=== PATIENT | male | born 1940 | race Caucasian/White ===

== ENCOUNTER 2020-05-03 09:10 | Outpatient (RCR) | payer MEDICARE, SELFPAY ==
[2020-04-29] MEDS: COVID-19 VACC, MRNA(PFIZER)/PF 30 MCG/0.3 ML SYRINGE IM (13:28)
[2020-05-20] MEDS: COVID-19 VACC, MRNA(PFIZER)/PF 30 MCG/0.3 ML SYRINGE IM (13:41)
== END 2020-07-29 23:59 ==
LOC: IMMUN 09:10
PROVIDERS: Referring Provider Family Medicine; Visit Provider Family Medicine
DX: Z23 Encounter for immunization (principal)
CPT/HCPCS: 0001A; 0002A; 91300

== ENCOUNTER → 2021-03-11 04:00 | Outpatient (REF) | payer MEDICARE, SELFPAY ==
[2021-03-11 09:39] LABS: Absolute Lymphocyte Count 2.24 X10^3/uL (0.83-4.51); Absolute Neutrophil Count 6.6 X10^3/uL (2.0-7.7); Basophil# 0.05 X10^3/uL; Basophil% 0.5 % (0-1); Eosinophil# 0.35 X10^3/uL; Eosinophils% 3.4 % (0-5); Hemoglobin 13.2 g/dL (13.0-16.5); Lymphocyte # 2.24 X10^3/ul (0.83-4.51); Mean Corp Hgb Conc 33.8 g/dL (32-36); Mean Corpuscular Hgb 31.7 pg (27.0-32.0); Mean Corpuscular Volume 93.8 fL (80-94); Mean Platelet Vol. 10.6 fl (6.2-12.0); Monocyte# 0.93 X10^3/uL; Monocyte% 9.2 % (0-10); NRBC Flagged by Analyzer 0 % (0-5); Neutrophil # 6.56 X10^3/uL (2.7-7.7); Neutrophil % 64.6 % (47-70); Platelet Count 254 K/mm3 (150-450); RBC Distribution Width CV 12.9 % (11.6-14.6); RBC Distribution Width SD 42.6 fl (35.1-43.9); Red Blood Count 4.16 M/mm3 (4.6-6.2); White Blood Count 10.2 K/mm3 (4.4-11.0)
[2021-03-11 09:54] LABS: Anion Gap 8 (5-15); BUN 25 mg/dL (7-18); BUN/Creat Ratio 15.9 RATIO (10-20); Calcium,Total 9.4 mg/dL (8.5-10.1); Chloride 108 mmol/L (98-107); Creatinine, Serum 1.57 mg/dL (0.70-1.30); EST Glomerular Filtration Rate 46 mL/min (>60); Est Glom Filt Rate - Afr Amer 55 mL/min (>60); Glucose 146 mg/dL (74-106); Potassium 3.7 mmol/L (3.5-5.1); Sodium Level 141 mmol/L (136-145)
== END ==
LOC: OLS.SW400 04:00
PROVIDERS: Referring Provider Internal Medicine; Visit Provider Internal Medicine
DX: I12.9 Hypertensive chronic kidney disease with stage 1 through stage 4 chronic kidney disease, or unspecified chronic kidney disease (principal); F03.90 Unspecified dementia, unspecified severity, without behavioral disturbance, psychotic disturbance, mood disturbance, and anxiety; E78.5 Hyperlipidemia, unspecified; N18.9 Chronic kidney disease, unspecified
CPT/HCPCS: 36415; 80048; 85025

== ENCOUNTER 2021-04-02 20:20 | Inpatient (IN) | payer MEDICARE, SELFPAY ==
[2021-04-02] VITALS (9 sets, daily range): BP systolic 158–188; BP diastolic 73–92; PULSE 66–72; RESP 11–16; TEMP 36.7–37.2; O2SAT 97–100; BMI 26.6; BMI 23.2
--- NOTE | 2021-04-02 20:22 | CT_ITS ---
We are attempting to reach an attending provider to discuss findings. An addendum with communication details will be sent when the communication is complete. EXAM: CT ANGIOGRAPHY HEAD AND NECK WITH INTRAVENOUS CONTRAST CLINICAL INDICATION: Neuro deficit, acute, stroke suspected TIA, found on floor, slurred speech, not using right arm. TECHNIQUE: [facility] [place]/head and neck CT angiography protocol performed with intravenous contrast. This CT exam was performed using one or more of the following dose reduction techniques: automated exposure control, adjustment of the mA and/or kV according to patient size, and/or use of iterative reconstruction technique. This report was created using [employer] report Gobble technology. MIP reconstructed images were created and reviewed. CONTRAST: IV 100mL [id number] COMPARISON: None. FINDINGS: HEAD: RIGHT ANTERIOR CEREBRAL ARTERY: Unremarkable. No significant stenosis at the visualized segments. Anterior communicating artery is present. No aneurysm. RIGHT MIDDLE CEREBRAL ARTERY: Unremarkable. No significant stenosis at the visualized segments. No aneurysm. RIGHT POSTERIOR CEREBRAL ARTERY: Unremarkable. No occlusion or significant stenosis. No aneurysm. LEFT ANTERIOR CEREBRAL ARTERY: Unremarkable. No significant stenosis at the visualized segments. No aneurysm. LEFT MIDDLE CEREBRAL ARTERY: Unremarkable. No significant stenosis at the visualized segments. No aneurysm. LEFT POSTERIOR CEREBRAL ARTERY: Unremarkable. No occlusion or significant stenosis. No aneurysm. BASILAR ARTERY: Unremarkable. No significant stenosis. No aneurysm. GREAT VESSELS OF AORTIC ARCH: Unremarkable. Normal anatomy, patent. OTHER VASCULATURE: No vascular malformation. NECK: RIGHT COMMON CAROTID ARTERY: Unremarkable. No significant stenosis. No dissection or occlusion. RIGHT INTERNAL CAROTID ARTERY: There is calcified plaque formation of the right cavernous carotid artery, with a mild stenosis (less than 50%). There is calcified plaque formation of the left cavernous carotid artery, with a mild stenosis (less than 50%). ALL ABOVE CRITERIA BY NASCET. No dissection or occlusion. RIGHT EXTERNAL CAROTID ARTERY: Unremarkable. No occlusion. RIGHT VERTEBRAL ARTERY: Unremarkable. No significant stenosis. No dissection or occlusion. LEFT COMMON CAROTID ARTERY: Unremarkable. No significant stenosis. No dissection or occlusion. LEFT INTERNAL CAROTID ARTERY: There is mild atherosclerotic plaque formation of the origin of the right and left internal carotid artery with less than 50% cross sectional diameter stenosis. ALL ABOVE CRITERIA BY NASCET. LEFT EXTERNAL CAROTID ARTERY: Unremarkable. No occlusion. LEFT VERTEBRAL ARTERY: Unremarkable. No significant stenosis. No dissection or occlusion. THYROID: Heterogeneous right lobe of the thyroid gland. Recommend ultrasound to further evaluate. LUNG APICES: Unremarkable as visualized. SOFT TISSUES: Unremarkable. OTHER FINDINGS: There are degenerative findings of the cervical spine. CAROTID STENOSIS REFERENCE USING NASCET CRITERIA: % ICA stenosis = (1 - narrowest ICA diameter/diameter of distal cervical ICA) x 100. Mild - <50% stenosis. Moderate - 50-69% stenosis. Severe - 70-94% stenosis. Near occlusion - 95-99% stenosis. Occluded - 100% stenosis. CT/STROKE CTA Head AND Neck W/Con IMPRESSION: 1. Heterogeneous right lobe of the thyroid gland. Recommend ultrasound to further evaluate. 2. There is mild atherosclerotic plaque formation of the origin of the right and left internal carotid artery with less than 50% cross sectional diameter stenosis. ALL ABOVE CRITERIA BY NASCET. 3. There is calcified plaque formation of the right cavernous carotid artery, with a mild stenosis (less than 50%). There is calcified plaque formation of the left cavernous carotid artery, with a mild stenosis (less than 50%). ALL ABOVE CRITERIA BY NASCET. Electronically Signed: Surinder Bender MD at 20:44 EST ,
--- NOTE | 2021-04-02 20:22 | EKG12_ITS ---
Test Reason : DYSRHYTHMIA Blood Pressure : / mmHG Vent. Rate : 067 BPM Atrial Rate : 067 BPM P-R Int : 176 ms QRS Dur : 090 ms QT Int : 416 ms P-R-T Axes : 045 -38 083 degrees QTc Int : 439 ms Sinus rhythm with Premature atrial complexes Left axis deviation Nonspecific T wave abnormality Poor R wave progression Abnormal ECG Confirmed by DARRIN AUSTIN, THOMPSON ([id number]), primer expeditor and drier ROMELIA AYOUB ([id number]) on 04/03/2021 11:09:04 AM Referred By: MARIAH Confirmed By:THOMPSON CLIFFORD MD
--- NOTE | 2021-04-02 20:22 | CT_ITS ---
We are attempting to reach an attending provider to discuss findings. An addendum with communication details will be sent when the communication is complete. EXAM: CT HEAD WITHOUT INTRAVENOUS CONTRAST CLINICAL INDICATION: Neuro deficit, acute, stroke suspected TECHNIQUE: Multiple axial images were obtained of the head without intravenous contrast. This CT exam was performed using one or more of the following dose reduction techniques: automated exposure control, adjustment of the mA and/or kV according to patient size, and/or use of iterative reconstruction technique. This report was created using [employer] report generation technology. 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 Old infarct of the left temporal lobe, frontal lobes, parietal lobes and occipital lobes. Microvascular ischemic changes. No intra- or extra-axial hemorrhage. No intracranial mass or mass effect. Ventricles are appropriate for age. No hydrocephalus. Basal cisterns are patent. BONES/JOINTS: Unremarkable. No discrete lytic or blastic abnormalities. SINUSES: Unremarkable as visualized. Clear. MASTOID AIR CELLS: Unremarkable. Clear. ORBITS: Visualized globes, extraocular muscles, optic nerves and retrobulbar fat appear unremarkable. 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 Electronically Signed: Surinder Bender MD at 20:39 EST ,
--- NOTE | 2021-04-02 20:23 | ED.VIS.STROK ---
HPI History of Present Illness Chief Complaint: Neuro S/Sx Narrative Narrative: 80-year-old male presenting for altered mental status, slurred speech, right-sided facial droop. Last known well 7:30 PM today. Patient was found by nursing staff at his facility on the floor. At that point he was unable to speak. He was unable to get up and move. Patient's baseline is alert and oriented x1-2, but he is not have slurred speech she has history. When asked if he has a history of stroke he indicates yes with his hand. He is able to move all 4 extremities. [facility] Medical History (Updated 04/02/21 @ 21:[address] Reba Kim MD) Acute CVA (cerebrovascular accident) Anxiety and depression Benign essential HTN Cataract (lens) fragments in eye following cataract surgery, left eye Chronic kidney disease DM2 (diabetes mellitus, type 2) Former tobacco use GERD (gastroesophageal reflux disease) History of CVA (cerebrovascular accident) Hyperlipidemia Muscle weakness (generalized) Orthostatic hypotension Sleep apnea TIA (transient ischemic attack) Vascular dementia Home Medications apixaban [Eliquis] 5 mg PO BID 04/02/21 [History Last Taken Unknown] fludrocortisone 0.1 mg PO DAILY 04/02/21 [History Last Taken Unknown] hydralazine 10 mg PO DAILY 04/02/21 [History Last Taken Unknown] hydralazine 20 mg PO QHS 04/02/21 [History Last Taken Unknown] Allergy/AdvReac Type Severity Reaction Status Date / Time No Known Allergies Allergy Verified 04/02/21 20:59 Social History Smoking Status: Former smoker ROS ROS ED Review of Systems ROS Unobtainable: due to mental status EXAM Physical Exam Const Vital Signs: 04/02/21 20:22 04/02/21 20:39 04/02/21 20:59 Temperature 98.9 F Temperature Source Oral Pulse Rate 67 Respiratory Rate 12 Blood Pressure 164/73 H Blood Pressure Mean 103 Pulse Ox 97 Oxygen Delivery Method Room Air Room Air 04/02/21 21:21 04/02/21 21:22 04/02/21 21:30 Temperature Temperature Source Pulse Rate 69 69 72 Respiratory Rate 13 11 L 11 L Blood Pressure 158/85 H 158/85 H 158/85 H Blood Pressure Mean 109 109 109 Pulse Ox 97 97 97 Oxygen Delivery Method Room Air Room Air Room Air Positive well nourished General Appearance ED: NAD HEENT Reports dry mucous membranes atraumatic Mouth ED: Yes dry mucous membranes Mouth: dry mucous membranes Eyes PERRL and EOMs intact bilaterally Chest Wall inspection of chest normal and palpation of chest normal Resp normal respiratory effort and clear to auscultation bilaterally Cardio Rate: regular rate Rhythm: regular rhythm GI normal to inspection, nondistended, normoactive bowel sounds Neuro Neuro Narrative: NIH stroke scale score of 7 Sensorium / Orientation: alert STROKE Vital Signs/Narrative: Vital Signs Temp Pulse Resp BP Pulse Ox 04/02/21 21:30 72 11 L 158/85 H 97 04/02/21 21:22 69 11 L 158/85 H 97 04/02/21 21:21 69 13 158/85 H 97 04/02/21 20:59 67 12 164/73 H 97 04/02/21 20:22 98.9 F MDM MDM MDM Narrative Medical decision making narrative: Patient presenting with slurred and garbled speech, right-sided facial droop, reported history of right arm weakness which is not present on exam. NIH stroke scale score of 7. His did arrive and states that he is on Eliquis because he has a history of strokes. She states that even though he is a fall risk to keep him on this. He is a fall risk because he has orthostatic hypotension. Patient is not supposed to ambulate on his own but if he has to go to the restroom he will get up and try to walk. He was found on the ground tonight. Last known well 1930. No evidence of injury to his extremities. Lungs clear to auscultation. Heart is regular rate and rhythm. Abdomen nontender. CT of the brain interpreted by the radiologist shows a left cerebellar ischemic stroke and possibly a right cerebellar ischemic stroke. This was reviewed with [facility] and they do agree that these both look fairly new. He does have old strokes on his CAT scan. There is no intracranial hemorrhage. His CBC shows a slight leukocytosis compared to previous on 03/23/2021. This is 13.4 today. Hemoglobin hematocrit are stable. Platelets are normal. Creatinine is at baseline at 1.68. Electrolytes are normal. Urinalysis is positive for infection. Patient given a dose of Rocephin and a urine culture is sent. Coagulation studies are normal. EKG on my interpretation is a sinus rhythm with a ventricular rate of 67 bpm. Impression: 1. Acute stroke 2. UTI 3. Fall Lab Data Attestation: I reviewed the patient's lab results. Labs: Laboratory Results - last 24 hr 04/02/21 04/02/21 04/02/21 20:08 20:08 20:52 WBC 13.4 H RBC 4.30 L Hgb 13.6 Hct 39.0 L MCV 90.7 MCH 31.6 MCHC 34.9 RDW Std Deviation 40.9 RDW Coeff of Palak 12.4 Plt Count 252 MPV 9.7 Immature Gran % (Auto) 0.600 Neut % (Auto) 73.5 H Lymph % (Auto) 14.0 L [place] % (Auto) 9.3 Eos % (Auto) 2.2 Baso % (Auto) 0.4 Absolute Neuts (auto) 9.8 H Absolute Lymphs (auto) 1.87 Nucleated RBC % 0 PT INR APTT Sodium 141 Potassium 3.8 Chloride 109 H Carbon Dioxide 28.0 Anion Gap 4 L BUN 21 H Creatinine 1.68 H Estim Creat Clear Calc 36.81 Est GFR (MDRD) Af Amer 51 L Est GFR (MDRD) Non-Af 42 L BUN/Creatinine Ratio 12.5 Glucose 102 Calcium 9.1 Troponin I High Sens 58 Urine Color Yellow Urine Clarity Clear Urine pH 7.0 Ur Specific [place] 1.010 Urine Protein Negative Urine Glucose (UA) Normal Urine Ketones Negative Urine Occult Blood 25 H Urine Nitrite Positive H Urine Bilirubin Negative Urine Urobilinogen Normal Ur Leukocyte Esterase 25 H Urine RBC 0-5 SEEN Urine WBC 0-5 SEEN Ur Squamous Epith Cells 0 SEEN Urine Bacteria 1+ Urine Mucus 0 SEEN 04/02/21 20:53 WBC RBC Hgb Hct MCV MCH MCHC RDW Std Deviation RDW Coeff of [place] Plt Count MPV Immature Gran % (Auto) Neut % (Auto) Lymph % (Auto) [place] % (Auto) Eos % (Auto) Baso % (Auto) Absolute Neuts (auto) Absolute Lymphs (auto) Nucleated RBC % PT 16.4 H INR 1.4 APTT 51.1 H Sodium Potassium Chloride Carbon Dioxide Anion Gap BUN Creatinine Estim Creat Clear Calc Est GFR (MDRD) Af Amer Est GFR (MDRD) Non-Af BUN/Creatinine Ratio Glucose Calcium Troponin I High Sens Urine Color Urine Clarity Urine pH Ur Specific [place] Urine Protein Urine Glucose (UA) Urine Ketones Urine Occult Blood Urine Nitrite Urine Bilirubin Urine Urobilinogen Ur Leukocyte Esterase Urine RBC Urine WBC Ur Squamous Epith Cells Urine Bacteria Urine Mucus Radiography Diagnostic Testing: Clinical Impression(s) from Imaging Studies Brain CT 04/02/21 20:22 IMPRESSION: 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 Electronically Signed: Surinder Bender MD at 20:39 EST , ADDENDUM: 04/02/212047 IMPRESSION: 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 N.B. : The above Results were Read Back by Surinder Bender MD to MD niyah, and understanding confirmed on 04/02/2021 20:41:35 (ET). Electronically Signed: Surinder Bender MD at 20:39 EST , Head/Neck CTA 04/02/21 20:22 IMPRESSION: 1. Heterogeneous right lobe of the thyroid gland. Recommend ultrasound to further evaluate. 2. There is mild atherosclerotic plaque formation of the origin of the right and left internal carotid artery with less than 50% cross sectional diameter stenosis. ALL ABOVE CRITERIA BY NASCET. 3. There is calcified plaque formation of the right cavernous carotid artery, with a mild stenosis (less than 50%). There is calcified plaque formation of the left cavernous carotid artery, with a mild stenosis (less than 50%). ALL ABOVE CRITERIA BY NASCET. Electronically Signed: Surinder Bender MD at 20:44 EST , ADDENDUM: 04/02/212054 IMPRESSION: 1. Heterogeneous right lobe of the thyroid gland. Recommend ultrasound to further evaluate. 2. There is mild atherosclerotic plaque formation of the origin of the right and left internal carotid artery with less than 50% cross sectional diameter stenosis. ALL ABOVE CRITERIA BY NASCET. 3. There is calcified plaque formation of the right cavernous carotid artery, with a mild stenosis (less than 50%). There is calcified plaque formation of the left cavernous carotid artery, with a mild stenosis (less than 50%). ALL ABOVE CRITERIA BY NASCET. N.B. : The above Results were Read Back by Surinder Bender MD to Dr Niyah MD, and understanding confirmed on 04/02/2021 20:48:32 (ET). Electronically Signed: Surinder Bender MD at 20:44 EST , Discharge Plan Triage Chief Complaint: Neuro S/Sx ED Provider: José Manley Dx/Rx/DC Orders Primary Care Provider: Kalpana Oden
--- NOTE | 2021-04-02 20:28 | CM.ED ---
SW Note Referral Source: Stroke Alert Referral Reason: Stroke Alert Sw responded to stroke alert. Family not present. SW was advised that patient's was in the room with patient per staff. SW met with Tatyana. Patient has been at [facility] for 3 weeks. Patient has been at [facility] for 3 weeks related to being a fall risk. Tatyana said that patient continually voices that he wants to come home. Tatyana said that she and patient moved to [place] approximately 7 months ago to downsize. Patient has son who lives local and son in [place]. Patient has no siblings and patient's brother in law ('s brother) resides in [place]. Tatyana reports good family support. Tatyana said that she got call from [facility] and her son was at my house in 10 minutes to bring her to the ED. Tatyana voiced that there has been lots of changes this past year due to moving, downsizing and patient going to [facility]. SW provided emotional support to Tatyana. Tatyana said that if patient is admitted she will have son take her home tonight. Tatyana reports no other issues or needs at this time. Sw remains available if needed. Plan: Emotional support to family. Radha BOTELLO
--- NOTE | 2021-04-02 20:30 | ED.RN ---
Pt arrives with no MAR or med list from [facility]. called [facility] and requested they fax medlist priyanka.
--- NOTE | 2021-04-02 20:40 | ED.RN ---
[facility] called ED to clarify if we wanted MAR or medlist. was told both and again asked for them priyanka. nurse states patient is not on blood thinners.
[2021-04-02 20:53] LABS: Absolute Lymphocyte Count 1.87 X10^3/uL (0.83-4.51); Absolute Neutrophil Count 9.8 X10^3/uL (2.0-7.7); Basophil# 0.05 X10^3/uL; Basophil% 0.4 % (0-1); Eosinophils% 2.2 % (0-5); Hemoglobin 13.6 g/dL (13.0-16.5); Lymphocyte # 1.87 X10^3/ul (0.83-4.51); Mean Corp Hgb Conc 34.9 g/dL (32-36); Mean Corpuscular Hgb 31.6 pg (27.0-32.0); Mean Corpuscular Volume 90.7 fL (80-94); Mean Platelet Vol. 9.7 fl (6.2-12.0); Monocyte# 1.24 X10^3/uL; Monocyte% 9.3 % (0-10); NRBC Flagged by Analyzer 0 % (0-5); Neutrophil # 9.82 X10^3/uL (2.7-7.7); Neutrophil % 73.5 % (47-70); Platelet Count 252 K/mm3 (150-450); RBC Distribution Width CV 12.4 % (11.6-14.6); RBC Distribution Width SD 40.9 fl (35.1-43.9); White Blood Count 13.4 K/mm3 (4.4-11.0)
[2021-04-02 21:03] LABS: Anion Gap 4 (5-15); BUN 21 mg/dL (7-18); BUN/Creat Ratio 12.5 RATIO (10-20); Calcium,Total 9.1 mg/dL (8.5-10.1); Chloride 109 mmol/L (98-107); Creatinine, Serum 1.68 mg/dL (0.70-1.30); EST Glomerular Filtration Rate 42 mL/min (>60); Est Glom Filt Rate - Afr Amer 51 mL/min (>60); Estimated Creatinine Clearance 36.81 ml/min; Glucose 102 mg/dL (74-106); Potassium 3.8 mmol/L (3.5-5.1); Sodium Level 141 mmol/L (136-145); Troponin-I HS 58 pg/mL (3.0-78.0)
[2021-04-02 21:16] LABS: Color, Urine Yellow (Yellow); Glucose, Dipstick Normal (Normal); Ketone-Dipstick Negative (Negative); Leukocyte Esterase-Dipstick 25 /ul (Negative); Mucous, Urine 0 SEEN /hpf (<or=2+); Nitrite-Dipstick Positive (Negative); Occult Blood-Urine 25 /ul (Negative); Protein-Dipstick Negative (Negative); Squamous Epithelial Cells - UA 0 SEEN /hpf (0-5); Urine Bilirubin Dipstick Negative (Negative); Urine Clarity Clear (Clear); Urine Urobilinogen Normal (Normal)
[2021-04-02 21:21] LABS: International Normalized Ratio 1.4; Prothrombin Time (Protime)PT. 16.4 SECONDS (11.7-14.9)
[2021-04-02 21:22] LABS: Partial Thromboplast Time 51.1 Seconds (24.1-36.2)
[2021-04-02 21:26] LABS: Bacteria 1+ /hpf (None Seen); Red Blood Cells-Urine 0-5 SEEN /hpf (0-5); White Blood Cells 0-5 SEEN /hpf (0-5)
[2021-04-02] MEDS: Ceftriaxone 1 GM/50 ML BAG IV (21:36)
--- NOTE | 2021-04-02 21:45 | ED.RN ---
third request for medlist made to [facility]. They are faxing to the wrong fax number. They will try again.
--- NOTE | 2021-04-02 21:46 | PCM.HP.STD ---
HPI - General General Date of Admission: 04/02/21 Date of Service: 04/02/21 Chief Complaint: Aphasia, R facial droop. HPI Narrative The patient is a 80 y/o M w/ PMHx: CKD stage III unclear subtype, Vascular Dementia, HTN, Chronic anemia/Fe deficiency anemia, Adrenal insufficiency on fludrocortisone, GERD, Anxiety and Depression, Diabetes mellitus type II, Former tobacco use, Hx prior CVA on eliquis therapy who presents to the [facility] ED on 04/02/21 with history of onset altered mental status, slurred speech as well as right-sided facial droop with last known well at 7:30 PM on day of presentation found by nursing staff at his skilled facility on the floor noted to be unable to speak at that time or get up on his own and move with a baseline orientation x1-2 with no speech alteration or slurred speech per skilled facility history. In the ED NIH stroke scale noted to be 7. Patient is following commands and given the significant findings on his CT with prior strokes his deficits are less than expected. Patient's for stroke per discussion with was 15 years prior to current presentation. He had been on Coumadin in the past per discussion with her but had transition to Eliquis which was reviewed secondary to concerns for having strokes through Eliquis. Work-up in the ED included CT the brain with acute ischemic infarct of the right and left cerebellar hemispheres, CTA of the head and neck with a heterogeneous right lobe of the thyroid, mild atherosclerotic plaque formation of the origin of the right and left ICA with less than 50% cross-sectional diameter stenosis, calcified plaque formation right cavernous carotid artery with mild stenosis less than 50%, calcified plaque formation left cavernous carotid artery with mild stenosis less than 50%, CBC with WBC 13.4, hemoglobin 13.6, platelet 252 with left shift, coags with PT 16.4, INR 1.4, PTT 51.1, BMP chloride 109, BUN/creatinine 21/1.68, troponin 58, urinalysis with positive nitrate, 25 occult blood, 25 leukocyte esterase with no urine WBCs with 1+ urine bacteria, urine culture pending per ED is unable to ascertain if patient has been symptomatic, EKG with sinus rhythm with no acute evidence of ischemia. [facility] Medical History (Updated 04/02/21 @ 21:[address] Reba Kim MD) Acute CVA (cerebrovascular accident) Anxiety and depression Benign essential HTN Cataract (lens) fragments in eye following cataract surgery, left eye Chronic kidney disease DM2 (diabetes mellitus, type 2) Former tobacco use GERD (gastroesophageal reflux disease) History of CVA (cerebrovascular accident) Hyperlipidemia Muscle weakness (generalized) Orthostatic hypotension Sleep apnea TIA (transient ischemic attack) Vascular dementia Home Medications amlodipine 2.5 mg PO DAILY 04/02/21 [History Last Taken Unknown] apixaban [Eliquis] 5 mg PO BID 04/02/21 [History Last Taken Unknown] dextromethorphan-quinidine [Nuedexta] 20 cap PO BID 04/02/21 [History Last Taken Unknown] diazepam 5 mg PO TID PRN PRN 04/02/21 [History Last Taken Unknown] famotidine 20 mg PO BID 04/02/21 [History Last Taken Unknown] ferrous gluconate 324 mg PO DAILY 04/02/21 [History Last Taken Unknown] fludrocortisone 0.1 mg PO DAILY 04/02/21 [History Last Taken Unknown] glimepiride 1 mg PO DAILY 04/02/21 [History Last Taken Unknown] hydralazine 10 mg PO DAILY 04/02/21 [History Last Taken Unknown] hydralazine 20 mg PO QHS 04/02/21 [History Last Taken Unknown] mirtazapine 15 mg PO QHS 04/02/21 [History Last Taken Unknown] potassium chloride 10 meq PO DAILY 04/02/21 [History Last Taken Unknown] sertraline 50 mg PO DAILY 04/02/21 [History Last Taken Unknown] simvastatin 20 mg PO QHS 04/02/21 [History Last Taken Unknown] Allergy/AdvReac Type Severity Reaction Status Date / Time No Known Allergies Allergy Verified 04/02/21 20:59 Family History (Updated 04/02/21 @ 22:[address] Reba Kim MD) Mother Anxiety and depression Father Heart disease Surgical History (Updated 04/02/21 @ 22:[address] Reba Kim MD) History of tonsillectomy and adenoidectomy S/P cataract extraction Social History (Updated 04/02/21 @ 22:[address] Reba Kim MD) housing: other details: SNF, moved in 3 weeks prior to current 04/02/21 admission. Smoking Status: Former smoker how long ago did patient quit smoking: Quit 45 years prior, smoked from teen until quit, noted heavy per spouse. alcohol intake: never substance use type: does not use ROS ROS Narrative ROS per SPOUSE/SNF CONSTITUTIONAL: No weight loss, fever, chills, + weakness or fatigue. HEENT: + Aphasia, facial droop. Eyes: No visual loss, blurred vision, double vision or yellow sclerae. Ears, Nose, Throat: No hearing loss, sneezing, congestion, runny nose or sore throat. SKIN: No rash or itching, lesions, wounds. CARDIOVASCULAR: No chest pain, chest pressure or chest discomfort, palpitations, edema, orthopnea, syncopal events. RESPIRATORY: No shortness of breath, cough or sputum, wheezing, hemoptysis. GASTROINTESTINAL: No anorexia, nausea, vomiting or diarrhea, abdominal pain, melena, BRBPR. GENITOURINARY: No dysuria, frequency, urgency or retention. NEUROLOGICAL: + Focal deficits, facial droop, aphasia, No headache, dizziness, syncope, paralysis, change in bowel or bladder control, seizure. MUSCULOSKELETAL: + muscle, back pain, joint pain or stiffness. HEMATOLOGIC: + anemia, bleeding or bruising. LYMPHATICS: No enlarged nodes. No history of splenectomy. PSYCHIATRIC: + history of depression or anxiety. ENDOCRINOLOGIC: No reports of sweating, cold or heat intolerance. No polyuria or polydipsia. ALLERGIES: No history of asthma, hives, eczema or rhinitis. Review of Systems ROS Unobtainable: other Details: Aphasia w/ acute CVA Vital Signs Vital Signs Vital Signs: 04/02/21 20:22 04/02/21 20:39 04/02/21 20:59 Temperature 98.9 F Temperature Source Oral Pulse Rate 67 Respiratory Rate 12 Blood Pressure 164/73 H Blood Pressure Mean 103 Pulse Ox 97 Oxygen Delivery Method Room Air Room Air 04/02/21 21:21 04/02/21 21:22 Temperature Temperature Source Pulse Rate 69 69 Respiratory Rate 13 11 L Blood Pressure 158/85 H 158/85 H Blood Pressure Mean 109 109 Pulse Ox 97 97 Oxygen Delivery Method Room Air Room Air Weight Weight: 185 lb 13.595 oz Body Mass Index (BMI) 26.6 Physical Exam Narrative Physical Examination: General: Awake, alert, oriented x 1 which per skilled facility is normal and often 1-2 maximum, able to give some hand signs and answer some questions, following all commands as able, seated upright in the ED bed, fatigued appearing. Skin: Normal color, normal turgor, no icterus, no cyanosis. HEENT: AT/NC, EOMI, PERRLA, mildly dry MM, evident R sided facial droop, no carotid bruits or JVD noted. Lungs: Diminished, greater bases, moderate effort, no rales, ronchi or wheezing. Heart: Regular rate and rhythm; no gallop, rub audible. Abdomen: Soft, NTTP, ND, normal BS, no HSM. Extremities: No cyanosis, clubbing, or edema. 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 Psychiatric: Affect appears fatigued, no acute evidence of depressive or anxiety feelings. Results Lab / Micro Data Result Diagrams: 04/02/21 20:08 04/02/21 20:08 Labs: Laboratory Results - last 24 hr 04/02/21 20:08: WBC 13.4 H, RBC 4.30 L, Hgb 13.6, Hct 39.0 L, MCV 90.7, MCH 31.6, MCHC 34.9, RDW Std Deviation 40.9, RDW Coeff of Palak 12.4, Plt Count 252, MPV 9.7, Immature Gran % (Auto) 0.600, Neut % (Auto) 73.5 H, Lymph % (Auto) 14.0 L, [place] % (Auto) 9.3, Eos % (Auto) 2.2, Baso % (Auto) 0.4, Absolute Neuts (auto) 9.8 H, Absolute Lymphs (auto) 1.87, Nucleated RBC % 0 04/02/21 20:08: Sodium 141, Potassium 3.8, Chloride 109 H, Carbon Dioxide 28.0, Anion Gap 4 L, BUN 21 H, Creatinine 1.68 H, Estim Creat Clear Calc 36.81, Est GFR (MDRD) Af Amer 51 L, Est GFR (MDRD) Non-Af 42 L, BUN/Creatinine Ratio 12.5, Glucose 102, Calcium 9.1, Troponin I High Sens 58 04/02/21 20:52: Urine Color Yellow, Urine Clarity Clear, Urine pH 7.0, Ur Specific [place] 1.010, Urine Protein Negative, Urine Glucose (UA) Normal, Urine Ketones Negative, Urine Occult Blood 25 H, Urine Nitrite Positive H, Urine Bilirubin Negative, Urine Urobilinogen Normal, Ur Leukocyte Esterase 25 H, Urine RBC 0-5 SEEN, Urine WBC 0-5 SEEN, Ur Squamous Epith Cells 0 SEEN, Urine Bacteria 1+, Urine Mucus 0 SEEN 04/02/21 20:53: PT 16.4 H, INR 1.4, APTT 51.1 H Radiology Impression Brain CT 04/02/21 20:22 IMPRESSION: 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 Electronically Signed: Surinder Bender MD at 20:39 EST , ADDENDUM: 04/02/212047 IMPRESSION: 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 N.B. : The above Results were Read Back by Surinder Bender MD to MD niyah, and understanding confirmed on 04/02/2021 20:41:35 (ET). Electronically Signed: Surinder Bender MD at 20:39 EST , Head/Neck CTA 04/02/21 20:22 IMPRESSION: 1. Heterogeneous right lobe of the thyroid gland. Recommend ultrasound to further evaluate. 2. There is mild atherosclerotic plaque formation of the origin of the right and left internal carotid artery with less than 50% cross sectional diameter stenosis. ALL ABOVE CRITERIA BY NASCET. 3. There is calcified plaque formation of the right cavernous carotid artery, with a mild stenosis (less than 50%). There is calcified plaque formation of the left cavernous carotid artery, with a mild stenosis (less than 50%). ALL ABOVE CRITERIA BY NASCET. Electronically Signed: Surinder Bender MD at 20:44 EST , ADDENDUM: 04/02/212054 IMPRESSION: 1. Heterogeneous right lobe of the thyroid gland. Recommend ultrasound to further evaluate. 2. There is mild atherosclerotic plaque formation of the origin of the right and left internal carotid artery with less than 50% cross sectional diameter stenosis. ALL ABOVE CRITERIA BY NASCET. 3. There is calcified plaque formation of the right cavernous carotid artery, with a mild stenosis (less than 50%). There is calcified plaque formation of the left cavernous carotid artery, with a mild stenosis (less than 50%). ALL ABOVE CRITERIA BY NASCET. N.B. : The above Results were Read Back by Surinder Bender MD to Dr Niyah MD, and understanding confirmed on 04/02/2021 20:48:32 (ET). Electronically Signed: Surinedr Bender MD at 20:44 EST , Assessment & Plan Assessment/Plan (1) Acute CVA (cerebrovascular accident): PLAN: The patient is a 80 y/o M w/ PMHx: CKD stage III unclear subtype, Vascular Dementia, HTN, Chronic anemia/Fe deficiency anemia, Adrenal insufficiency on fludrocortisone, GERD, Anxiety and Depression, Diabetes mellitus type II, Former tobacco use, Hx prior CVA on eliquis therapy who presents to the [facility] ED on 04/02/21 with history of onset altered mental status, slurred speech as well as right-sided facial droop with last known well at 7:30 PM on day of presentation found by nursing staff at his skilled facility on the floor noted to be unable to speak at that time or get up on his own and move with a baseline orientation x1-2 with no speech alteration or slurred speech per skilled facility history. #1. Altered speech, right-sided facial droop with severeal prior CVA secondary to acute right and left cerebellar hemisphere infarcts: Will admit to PCU, will obtain MRI Brain, will obtain follow-up carotid ultrasound as noted mild less than 50% disease to be cautious, obtain ECHO, PT/OT/Speech/Nutrition evaluation per protocol. Will consult Neurology for evaluation once work-up and imaging obtained. Will allow permissive HTN, given significant stroke will hold patient Eliquis regimen and once repeat CT obtained per neurology recommendation would plan restart in 1 week, continue aspirin therapy in interim, continue home statin, fall precautions and aspiration precautions, obtain TSH, FLP, HgbA1c, unable to obtain magnesium level unfortunately. Given patient breakthrough stroke through Eliquis regimen as discussed with may need to consider Coumadin but this will need to be addressed with neurology at repeat evaluation. Additionally given stroke onset at least 15 years prior some concern about any underlying issue therefore while off Eliquis could consider hypercoagulable evaluation if felt appropriate. #2. Questionable Acute Urinary Tract Infection: Unable to turn if the patient is symptomatic, UA with some concern for UTI, U CX pending, administered IV Rocephin in the ED which will be continued pending culture but low threshold to de-escalate if appropriate. #3. Incidental heterogeneous right thyroid lobe: TSH, free T4 requested as well as thyroid ultrasound. #4. Hypertension: We will hold regimen with permissive hypertension, as needed agents per protocol, resume once appropriate. #5. Hyperlipidemia: Continue home statin regimen. AM FLP. #6. Chronic adrenal insufficiency: We will continue patient home fludrocortisone oral regimen. #7. Anxiety and depression: We will continue patient home mirtazapine, sertraline and as needed Valium regimen however will hold for any sedation given acute presentation as noted. #8. Diabetes mellitus type II: Hold oral home regimen, hemoglobin A1c requested, ADA diet if cleared for oral intake, accu checks w/ ISS. #9. Chronic anemia/iron deficiency anemia: Admission hemoglobin 13.6, baseline hemoglobin 12-13, stable, trend CBC. #10. GERD: We will continue patient on famotidine regimen. #11. Former tobacco use: Encourage continued tobacco cessation. #12. Chronic Kidney Disease Stage III unclear subtype: Admission BUN/Cr 21/1.68, baseline renal function 1.4-1.5, repeat BMP in AM. #13. Vascular dementia with unclear behavioral disturbance history: Complicates presentation, offloading, therapies consulted as noted. #14. ANGEL LUIS: Does not use CPAP/BIPAP. #15. DVT prophylaxis: SCDs, temporarily holding home Eliquis given significant right and left cerebellar hemispheric infarcts to avoid hemorrhagic conversion. Also, given ongoing CVA despite taking this he may need to transition to coumadin. Will await repeat Neurology input once further work-up as noted is obtained. #16. CODE status: Patient HCPOA is who is present and living will is currently in place. Discussed CODE status at length including difference between FULL code, DNR-CCA and DNR-CC status. Following discussions about the differences in these status, requested DNR-CCA, no intubation. Advanced Care Planning Face to Face Time: 16 minutes. Charges/Coding Visit Charges Inpatient E&M: 89396 Init Hosp L3 Procedures Hospitalists Procedures: 04619 Advncd Care Plan 30 Min
--- NOTE | 2021-04-02 21:55 | RAD_ITS ---
STUDY: X-RAY CHEST REASON FOR EXAM: Male, 80 years old. Slurred speech and right-sided facial droop. TECHNIQUE: AP COMPARISON: 04/25/2011 CXR FINDINGS: No evidence of pneumonia, pulmonary edema, pneumothorax or pleural effusion. Cardiac silhouette, hilar and mediastinal contours with no acute findings. Heart size normal. Atherosclerosis of the thoracic aorta. Degenerative osseous changes with no acute osseous abnormality. RAD/Chest 1 View IMPRESSION: No acute findings. Electronically Signed: Ryder Siddiqui MD at 22:22 EST Reading Location ID and State: [facility] / [place] Tel , Service support ,
--- NOTE | 2021-04-02 22:26 | ECHOCS_ITS ---
Reason For Study: CVA Procedure This was a 2D Doppler, Color Flow transthoracic echocardiogram. The study was technically limited. Limited views were obtained. The study was technically difficult. Due to body habitus. Contrast injection was performed. Exam performed portable in patient room. Left Ventricle Normal left ventricle. The estimated ejection fraction is 55-60 %. Right Ventricle Normal right ventricle. Normal systolic function. Atria The left atrium is mildly enlarged. Normal right atrium. Mitral Valve The mitral valve is structurally normal. No prolapse or stenosis seen. Mild (1+) mitral valve insufficiency. Tricuspid Valve Normal tricuspid valve. Aortic Valve The aortic valve is not well visualized. Pulmonic Valve The pulmonic valve is not well visualized. Great Vessels Normal aortic root. Pericardium/Pleural Small pericardial effusion. Medication Diluted definity 3.0ml given slow IV push to enhance endocardial definition. MMode/2D Measurements & Calculations LVIDd: 5.6 cm IVSd: 1.2 cm Ao root diam: 3.8 cm LVIDs: 3.8 cm LVPWd: 1.0 cm FS: 31.9 % LAV(MOD-bp): 27.9 ml LVAd ap4: 24.0 cm2 LVAd ap2: 36.6 cm2 LAV(MOD-bp) Indexed: 14.1 ml/m2 LVLd ap4: 8.2 cm LVLd ap2: 8.9 cm LAV(MOD-sp2): 30.8 ml EDV(MOD-sp4): 61.0 ml EDV(MOD-sp2): 126.9 ml LAV(MOD-sp4): 24.6 ml EDV(sp4-el): 59.7 ml EDV(sp2-el): 128.6 ml LVAs ap4: 16.0 cm2 LVAs ap2: 23.1 cm2 LVLs ap4: 6.9 cm LVLs ap2: 7.5 cm ESV(MOD-sp4): 31.2 ml ESV(MOD-sp2): 59.0 ml ESV(sp4-el): 31.6 ml ESV(sp2-el): 60.7 ml EF(MOD-sp4): 48.9 % EF(MOD-sp2): 53.5 % EF(sp4-el): 47.1 % SV(MOD-sp4): 29.8 ml SV(MOD-sp2): 67.9 ml SV(sp4-el): 28.1 ml LA A4 area: 11.6 cm2 LA dimension(2D): 3.9 cm Time Measurements MV dec time: 0.24 sec Doppler Measurements & Calculations MV E max marc: 63.8 cm/sec Lat Peak E' Marc: 5.6 cm/sec Med Peak E' Marc: 4.6 cm/sec MV A max marc: 98.0 cm/sec E/E' lat: 11.4 E/E' med: 13.9 MV E/A: 0.65 Ao V2 max: 149.3 cm/sec LV V1 max: 89.6 cm/sec Ao max P.9 mmHg LV V1 max P.2 mmHg ECHO/Echo Complete W/ Contrast Interpretation Summary The estimated ejection fraction is 55-60 %. Contrast echo using Definity No significant changes fom prior echo Ordering Physician: Reba Kim Referring Physician: Kalpana Oden Performed By: Ingrid Shay, AYDEE, RVT
[2021-04-02] MEDS: 0.9% Normal Saline 1,000 ML 100 ML IV (22:57)
[2021-04-02 23:21] LABS: Bedside Glucose 121 mg/dL (70-110)
[2021-04-03] VITALS (14 sets, daily range): BP systolic 143–169; BP diastolic 76–101; PULSE 60–84; RESP 16–18; TEMP 36.4–37.1; O2SAT 96–99; BMI 23.2
--- NOTE | 2021-04-03 02:43 | NURSING ---
on neuro exam pt was able to say mama and the rest was unable to under stand
[2021-04-03 05:25] LABS: Absolute Lymphocyte Count 1.95 X10^3/uL (0.83-4.51); Absolute Neutrophil Count 7.6 X10^3/uL (2.0-7.7); Basophil# 0.02 X10^3/uL; Basophil% 0.2 % (0-1); Eosinophil# 0.34 X10^3/uL; Eosinophils% 3.1 % (0-5); Hematocrit 36.3 % (40-54); Hemoglobin 12.4 g/dL (13.0-16.5); Lymphocyte # 1.95 X10^3/ul (0.83-4.51); Lymphocyte % 17.8 % (19-41); Mean Corp Hgb Conc 34.2 g/dL (32-36); Mean Corpuscular Hgb 31.1 pg (27.0-32.0); Mean Platelet Vol. 9.3 fl (6.2-12.0); Monocyte# 0.98 X10^3/uL; Monocyte% 8.9 % (0-10); NRBC Flagged by Analyzer 0 % (0-5); Neutrophil # 7.64 X10^3/uL (2.7-7.7); Neutrophil % 69.5 % (47-70); Platelet Count 212 K/mm3 (150-450); RBC Distribution Width CV 12.3 % (11.6-14.6); RBC Distribution Width SD 41.1 fl (35.1-43.9); Red Blood Count 3.99 M/mm3 (4.6-6.2)
--- NOTE | 2021-04-03 05:55 | CDU_ITS ---
Reason For Study: CVA Rt. Velocities/BP Lt. Velocities/BP Prox CCA 54.2/12.5 cm/sec. Prox CCA 80.1/15.3 cm/sec. Mid CCA 73.7/13.8 cm/sec. Mid CCA 82.4/14.2 cm/sec. Dist CCA 64.7/15.1 cm/sec. Dist CCA 63.6/12.0 cm/sec. Prox ICA 43.4/12.2 cm/sec. Prox ICA 46.0/14.2 cm/sec. Mid ICA 57.5/13.1 cm/sec. Mid ICA 50.4/10.9 cm/sec. Dist ICA 39.1/14.2 cm/sec. Dist ICA 62.5/15.3 cm/sec. Rt. ICA/CCA = .9. Lt. ICA/CCA = .9. Prox ECA 49.0/5.6 cm/sec. Prox ECA 73.5/12.0 cm/sec. Rt. Vert. 44.1/8.5 cm/sec. Lt. Vert. 62.5/15.3 cm/sec. Right Extracranial There is heterogeneous, irregular atherosclerotic plaque noted in the right common carotid artery. There is heterogeneous, irregular atherosclerotic plaque noted in the right internal carotid artery. There is heterogeneous, irregular atherosclerotic plaque noted in the right external carotid artery. Antegrade flow is noted in the right vertebral artery. Left Extracranial There is homogeneous, smooth atherosclerotic plaque noted in the left common carotid artery. There is heterogeneous, irregular atherosclerotic plaque noted in the left common carotid artery. There is heterogeneous, irregular atherosclerotic plaque noted in the left internal carotid artery. There is heterogeneous, irregular atherosclerotic plaque noted in the left external carotid artery. Antegrade flow is noted in the left vertebral artery. Procedure Carotid Duplex 28802. Technically difficult-done as inpt. Exam performed portable in patient room. VL/Carotid Duplex Ultrasound Interpretation Summary Irregular calcific plague proximal right internal carotid with <50% stenosis <50% stenosis right external carotid Irregular plague at the proximal left internal carotid with <50% stenosis <50% stenosis left external carotid Patent, antegrade vertebrals bilaterally Technically difficult exam Ordering Physician: Reba Kim Referring Physician: ASAF LONG Performed By: Bailey Botello, AYDEE, RVT
[2021-04-03 05:59] LABS: ALB/GLOB Ratio 0.9 RATIO (0.9-2.4); AST(SGOT) 16 U/L (15-37); Alanine Aminotransfer ALT/SGPT 22 U/L (16-61); Alkaline Phosphatase 64 U/L (45-117); BUN 16 mg/dL (7-18); BUN/Creat Ratio 12.6 RATIO (10-20); Calcium,Total 8.4 mg/dL (8.5-10.1); Chloride 110 mmol/L (98-107); Cholesterol 83 mg/dL (200); Creatinine, Serum 1.27 mg/dL (0.70-1.30); EST Glomerular Filtration Rate 58 mL/min (>60); Est Glom Filt Rate - Afr Amer 70 mL/min (>60); Globulin 3.2 g/dL (2.2-4.2); Glucose 103 mg/dL (74-106); Potassium 3.5 mmol/L (3.5-5.1); Protein, Total 6.2 g/dL (6.4-8.2); Sodium Level 140 mmol/L (136-145); Triglycerides 115 mg/dL
[2021-04-03 06:00] LABS: Anion Gap 2 (5-15); High Density Lipoprotein 42 mg/dL; T4 Free Direct 0.96 ng/dL (0.76-1.46); Thyroid Stim Hormone (TSH) 1.62 uIU/mL (0.358-3.74); Very Low Density Lipoprotein 23 mg/dL (5-40)
[2021-04-03 06:25] LABS: Bedside Glucose 112 mg/dL (70-110)
--- NOTE | 2021-04-03 07:24 | MRI_ITS ---
We are attempting to reach an attending provider to discuss findings. An addendum with communication details will be sent when the communication is complete. STUDY: MRI BRAIN WITHOUT CONTRAST REASON FOR EXAM: Male, 80 years old. CVA TECHNIQUE: Standardized multiplanar fat and water weighted pulse sequences were obtained. COMPARISON: CT 04/02/2021 FINDINGS: There is moderate cerebral atrophy with widening of the extra-axial spaces and ventricular dilatation. There are multiple white matter hyperintensities, distributed throughout the deep white matter tracts of the cerebral hemispheres, consistent with moderate chronic white matter ischemic changes. Hyperintensity of a gyrus of the left parietal lobe demonstrates restricted diffusion consistent with an acute/subacute infarct. Normal T2* images of the brain without demonstrated susceptibility artifact. There is no demonstrated hemosiderin stain. Areas of encephalomalacia and gliosis in the left temporal lobe consistent with a chronic infarct. Normal bilateral basal ganglia. Normal thalami. There is no extra-axial fluid accumulation. Normal flow voids within the major intracranial circulation suggesting patency by spin echo criteria. Normal sella turcica, pituitary gland, infundibular stalk, optic chiasm and hypothalamus. Normal tectal plate and pineal gland. Normal midbrain, antonio and medulla. Areas of encephalomalacia and gliosis in both hemispheres and cerebellum consistent with chronic infarcts. Normal basal cisterns. Normal bilateral temporal bones. Normal bilateral internal auditory canals. There are bilateral ocular lens implants with otherwise normal intraorbital contents. Normal visualized paranasal sinuses. Normal calvarium and skull base. Normal visualized soft tissue structures. Normal visualized upper cervical spine. MRI/Brain without Contrast IMPRESSION: Involutional changes of the brain, as described above. Acute/subacute infarct of the left parietal lobe. Electronically Signed: Galdino De Leon MD at 11:54 EST ,
[2021-04-03 07:46] LABS: Hemoglobin A1c 5.5 % (3.8-5.6)
[2021-04-03] MEDS: 0.9% Normal Saline 1,000 ML 100 ML IV ×2 (11:51→20:19)
--- NOTE | 2021-04-03 11:51 | CASEMGMT ---
LINUS met with patient's Tatyana. Introduced self and role at [facility]. Tatyana thinks the plan is for patient to return to [facility]. However, he is constantly begging her to take him home. She cannot take him home as he is too much for her to care for. She has considered changing facilities, but she has been so overwhelmed with everything going on. She said he is in the dementia unit at [facility] and does not really need to be as he is not a flight risk. Up until this recent incident he was alert enough to notice he was in the dementia unit and does not like it. LINUS told her SW will gather some resources and get them to her along with a copy of facilities in [facility] that take patient's insurance. SW provided a list of SNF providers including quality and resource use data and consistent with the patient?s preferred geographic region, medical needs, and insurance network. SW highlighted the facilities that take his insurance. LINUS also gave her information on [employer] support groups and assistance. LINUS also gave her information on private duty assistance. Patient will require insurance authorization prior to returning to SNF or going to a new SNF. LINUS told patient's SW will follow up with her on Tuesday. Plan: d/c back to [facility] vs new SNF Amanda BOTELLO
[2021-04-03 12:01] LABS: Bedside Glucose 142 mg/dL (70-110)
--- NOTE | 2021-04-03 12:53 | TELEMED_ITS ---
[facility] Tele[facility] has confirmed receipt of a request for visit. This document confirms receipt of the order initiating the consult. To find the results of the consultation, please view the patient's reports for the scanned Telemed Consult.
--- NOTE | 2021-04-03 13:27 | PN.HOSP_ITS ---
Subjective Subjective Patient seen and examined. He was alert but had significant expressive aphasia and so unable to do review of systems as patient has expressive aphasia. He is able to not shake his head in response to questions. He denied being in any pain and denied any weakness, chest pain, nausea or vomiting. Patient is quite frustrated because he is not able to verbalize his wishes. Objective Data Objective Data Vital Signs: Vital Signs Temp Pulse Resp BP Pulse Ox 98.7 F 67 18 156/81 H 98 04/03/21 11:00 04/03/21 11:00 04/03/21 11:00 04/03/21 11:00 04/03/21 11:00 Oxygen Delivery Method Room Air Weight: 176 lb 5.917 oz Body Mass Index (BMI) 23.2 Intake & Output: Intake and Output for Last 24 Hours 04/01/21 04/02/21 04/03/21 23:59 23:59 23:59 Intake Total 50 / 50 1000 / 1000 Output Total 200 / 200 200 / 200 Balance -150 / -150 800 / 800 Lab / Micro Data Result Diagrams: 04/03/21 05:06 04/03/21 05:06 Labs: Laboratory Results - last 24 hr 04/02/21 20:08: WBC 13.4 H, RBC 4.30 L, Hgb 13.6, Hct 39.0 L, MCV 90.7, MCH 31.6, MCHC 34.9, RDW Std Deviation 40.9, RDW Coeff of Palak 12.4, Plt Count 252, MPV 9.7, Immature Gran % (Auto) 0.600, Neut % (Auto) 73.5 H, Lymph % (Auto) 14.0 L, [place] % (Auto) 9.3, Eos % (Auto) 2.2, Baso % (Auto) 0.4, Absolute Neuts (auto) 9.8 H, Absolute Lymphs (auto) 1.87, Nucleated RBC % 0 04/02/21 20:08: Sodium 141, Potassium 3.8, Chloride 109 H, Carbon Dioxide 28.0, Anion Gap 4 L, BUN 21 H, Creatinine 1.68 H, Estim Creat Clear Calc 36.81, Est GFR (MDRD) Af Amer 51 L, Est GFR (MDRD) Non-Af 42 L, BUN/Creatinine Ratio 12.5, Glucose 102, Calcium 9.1, Troponin I High Sens 58 04/02/21 20:52: Urine Color Yellow, Urine Clarity Clear, Urine pH 7.0, Ur Specific [place] 1.010, Urine Protein Negative, Urine Glucose (UA) Normal, Urine Ketones Negative, Urine Occult Blood 25 H, Urine Nitrite Positive H, Urine Bilirubin Negative, Urine Urobilinogen Normal, Ur Leukocyte Esterase 25 H, Urine RBC 0-5 SEEN, Urine WBC 0-5 SEEN, Ur Squamous Epith Cells 0 SEEN, Urine Bacteria 1+, Urine Mucus 0 SEEN 04/02/21 20:53: PT 16.4 H, INR 1.4, APTT 51.1 H 04/02/21 23:06: POC Glucose 121 H 04/03/21 05:06: WBC 11.0, RBC 3.99 L, Hgb 12.4 L, Hct 36.3 L, MCV 91.0, MCH 31.1, MCHC 34.2, RDW Std Deviation 41.1, RDW Coeff of Palak 12.3, Plt Count 212, MPV 9.3, Immature Gran % (Auto) 0.500, Neut % (Auto) 69.5, Lymph % (Auto) 17.8 L , [place] % (Auto) 8.9, Eos % (Auto) 3.1, Baso % (Auto) 0.2, Absolute Neuts (auto) 7.6, Absolute Lymphs (auto) 1.95, Nucleated RBC % 0 04/03/21 05:06: Sodium 140, Potassium 3.5, Chloride 110 H, Carbon Dioxide 28.0, Anion Gap 2 L, BUN 16, Creatinine 1.27, Estim Creat Clear Calc 53.30, Est GFR (MDRD) Af Amer 70, Est GFR (MDRD) Non-Af 58 L, BUN/Creatinine Ratio 12.6, Glucose 103, Calcium 8.4 L, Total Bilirubin 0.30, AST 16, ALT 22, Alkaline Phosphatase 64, Total Protein 6.2 L, Albumin 3.0 L, Globulin 3.2, Albumi n/Globulin Ratio 0.9, Triglycerides 115, Cholesterol 83, LDL Cholesterol 18, VLDL Cholesterol 23, HDL Cholesterol 42, TSH 1.62, Free T4 0.96 04/03/21 05:06: Hemoglobin A1c 5.5 04/03/21 06:19: POC Glucose 112 H 04/03/21 11:53: POC Glucose 142 H Micro: Microbiology 04/02/21 20:52 Urine, Clean Catch Urine Culture - Preliminary Gram Positive Cocci Radiography Diagnostic Testing: Radiology Impression Brain CT 04/02/21 20:22 IMPRESSION: 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 Electronically Signed: Surinder Bender MD at 20:39 EST , ADDENDUM: 04/02/212047 IMPRESSION: 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 N.B. : The above Results were Read Back by Surinder Bender MD to MD niyah, and understanding confirmed on 04/02/2021 20:41:35 (ET). Electronically Signed: Surinder Bender MD at 20:39 EST Reading Location ID and State: [id number] / , Service support , Head/Neck CTA 04/02/21 20:22 IMPRESSION: 1. Heterogeneous right lobe of the thyroid gland. Recommend ultrasound to further evaluate. 2. There is mild atherosclerotic plaque formation of the origin of the right and left internal carotid artery with less than 50% cross sectional diameter stenosis. ALL ABOVE CRITERIA BY NASCET. 3. There is calcified plaque formation of the right cavernous carotid artery, with a mild stenosis (less than 50%). There is calcified plaque formation of the left cavernous carotid artery, with a mild stenosis (less than 50%). ALL ABOVE CRITERIA BY NASCET. Electronically Signed: Surinder Bender MD at 20:44 EST , ADDENDUM: 04/02/212054 IMPRESSION: 1. Heterogeneous right lobe of the thyroid gland. Recommend ultrasound to further evaluate. 2. There is mild atherosclerotic plaque formation of the origin of the right and left internal carotid artery with less than 50% cross sectional diameter stenosis. ALL ABOVE CRITERIA BY NASCET. 3. There is calcified plaque formation of the right cavernous carotid artery, with a mild stenosis (less than 50%). There is calcified plaque formation of the left cavernous carotid artery, with a mild stenosis (less than 50%). ALL ABOVE CRITERIA BY NASCET. N.B. : The above Results were Read Back by Surinder Bender MD to Dr Niyah MD, and understanding confirmed on 04/02/2021 20:48:32 (ET). Electronically Signed: Surindre Bender MD at 20:44 EST , Chest X-Ray 04/02/21 21:55 IMPRESSION: No acute findings. Electronically Signed: Ryder Siddiqui MD at 22:22 EST , Brain MRI 04/03/21 07:24 IMPRESSION: Involutional changes of the brain, as described above. Acute/subacute infarct of the left parietal lobe. Electronically Signed: Galdino De Leon MD at 11:54 EST , ADDENDUM: 04/03/21 1217 IMPRESSION: Involutional changes of the brain, as described above. Acute/subacute infarct of the left parietal lobe. N.B. : The above Results were Read Back by Galdino De Leon MD to Tristian Cook;[phone], and understanding confirmed on 04/03/2021 12:10:54 (ET). Electronically Signed: Galdino De Leon MD at 11:54 EST , ADDENDUM: 04/03/21 1223 IMPRESSION: Involutional changes of the brain, as described above. Acute/subacute infarct of the left parietal lobe. N.B. : The above Results were Read Back by Galdino De Leon MD to , AA, and understanding confirmed on 04/03/2021 12:16:57 (ET). Electronically Signed: Galdino De Leon MD at 11:54 EST , Physical Exam Const alert Constitutional Narrative: severe expressive aphasia Exam Limitations: altered mental status HEENT head/scalp atraumatic and moist oral mucous membranes Head and Scalp: normocephalic Eyes PERRL, EOMs intact bilaterally and conjunctivae normal Neck no lymphadenopathy Resp Resp Narrative: diminished breath sounds bibasally, no wheezes, no crackles. on room air. Cardio regular rate, regular rhythm, S1 normal heart sound, S2 normal heart sound and no murmurs GI normal to inspection, nondistended, normoactive bowel sounds, soft to palpation, non-tender and non-distended Extremity normal to inspection and full ROM Peripheral Pulses: Yes pulses 2+ throughout Skin no rashes or lesions noted Neuro Neuro Narrative: severe expressive aphasia, right facial droop. Moving all extremities spontaneously. Sensorium / Orientation: awake Psych Mood & Affect: anxious Assessment & Plan Assessment/Plan (1) Acute CVA (cerebrovascular accident): PLAN: #Acute CVA * patient was on eliquis, but still had the CVA * has had previous strokes. Now has significant expressive aphasia * CT bran showed acute ischemic infarcts of the right and left cerebellar hemispheres, * CTA of the head and neck showed no hemodynamically significant stenosis. * MRI of brain positive for stroke * on aspirin and high intensity statin. * still has right facial droop * MRi of brain: * will need to discuss with [facility] neurology about continuing eliquis or starting coumadin. in light of patient having strokes whilst on eliquis. * PT OT on board. Fall precautions. Speech therapy on board to assess for dysphagia in light of aphasia #Heterogeneous right thyroid lobe: Thyroid ultrasound ordered. TSH and free T4 within normal limits. #Hypertension: Blood pressure medications held to allow for permissive hypertension. #Hyperlipidemia: On high intensity statin #Chronic adrenal insufficiency: On fludrocortisone #GERD: On famotidine #CKD stage III: Creatinine around 1.5. Will monitor. #History of vascular dementia: PT OT on board. Fall precautions DVT prophylaxis: * SCDs. * Eliquis held in light of CVA to help prevent hemorrhagic conversion. Will await neurology input about whether to start Coumadin or to continue Xarelto. Charges/Coding Visit Charges Inpatient E&M: 53140 Subs Hosp L3
[2021-04-03 17:40] LABS: Bedside Glucose 121 mg/dL (70-110)
[2021-04-03] MEDS: Ceftriaxone 1 GM/50 ML BAG IV (21:01)
[2021-04-03 21:26] LABS: Bedside Glucose 112 mg/dL (70-110)
--- NOTE | 2021-04-03 22:26 | US_ITS ---
STUDY: THYROID ULTRASOUND REASON FOR EXAM: Male, 80 years old. Abnormal thyroid on a recent CT scan. TECHNIQUE: Ultrasound evaluation of the thyroid was performed with real-time and static hall-scale imaging. COMPARISON: Comparison is made with prior examination dated 04/02/2021. FINDINGS: RIGHT LOBE: The right lobe of the thyroid gland is enlarged and measures 5.3 cm x 2.3 cm x 2.1 cm. There is a homogeneous echotexture. There is a dominant complex nodule measuring 3.1 cm x 3 cm x 2.1 cm in the upper pole of the right lobe. Biopsy is recommended. There is also evidence of 2 subcentimeter solid nodules. LEFT LOBE: The left lobe of the thyroid gland measures 4.5 cm x 1.9 cm x 1.3 cm. There is a homogeneous echotexture. There is an 8 mm x 7 mm x 6 mm solid nodule in the lower pole. A similar-appearing nodule measuring 6 mm x 6 mm x 4 mm is seen in the midpole. ISTHMUS: The isthmus measures 6 mm. The regional lymph nodes are normal. US/Thyroid IMPRESSION: Enlargement of the right lobe of the thyroid with a dominant complex solid and cystic nodule measuring 3.1 cm x 3 cm x 2.1 cm. Biopsy is recommended. Electronically Signed: Ric Dasilva MD at 14:28 EST ,
[2021-04-04] VITALS (14 sets, daily range): BP systolic 135–184; BP diastolic 80–107; PULSE 61–89; RESP 16–18; TEMP 36.6–36.9; O2SAT 95–100; BMI 23.2
[2021-04-04] MEDS: 0.9% Normal Saline 1,000 ML 100 ML IV ×2 (05:55→15:49)
[2021-04-04 06:10] LABS: Absolute Lymphocyte Count 1.86 X10^3/uL (0.83-4.51); Absolute Neutrophil Count 6.9 X10^3/uL (2.0-7.7); Basophil# 0.03 X10^3/uL; Basophil% 0.3 % (0-1); Eosinophil# 0.26 X10^3/uL; Eosinophils% 2.6 % (0-5); Hematocrit 36.8 % (40-54); Lymphocyte # 1.86 X10^3/ul (0.83-4.51); Lymphocyte % 18.8 % (19-41); Mean Corp Hgb Conc 35.3 g/dL (32-36); Mean Corpuscular Hgb 31.6 pg (27.0-32.0); Mean Corpuscular Volume 89.5 fL (80-94); Monocyte# 0.84 X10^3/uL; Monocyte% 8.5 % (0-10); NRBC Flagged by Analyzer 0 % (0-5); Neutrophil # 6.88 X10^3/uL (2.7-7.7); Neutrophil % 69.3 % (47-70); Platelet Count 220 K/mm3 (150-450); RBC Distribution Width CV 12.1 % (11.6-14.6); RBC Distribution Width SD 39.5 fl (35.1-43.9); Red Blood Count 4.11 M/mm3 (4.6-6.2); White Blood Count 9.9 K/mm3 (4.4-11.0)
[2021-04-04 06:56] LABS: Bedside Glucose 105 mg/dL (70-110)
[2021-04-04 06:59] LABS: Anion Gap 6 (5-15); BUN 12 mg/dL (7-18); BUN/Creat Ratio 11.5 RATIO (10-20); Calcium,Total 8.8 mg/dL (8.5-10.1); Chloride 108 mmol/L (98-107); Creatinine, Serum 1.04 mg/dL (0.70-1.30); EST Glomerular Filtration Rate 73 mL/min (>60); Est Glom Filt Rate - Afr Amer 89 mL/min (>60); Glucose 100 mg/dL (74-106); Potassium 3.6 mmol/L (3.5-5.1); Sodium Level 140 mmol/L (136-145)
[2021-04-04 08:16] LABS: Erythrocyte Sedimentation Rate 32 mm/hr (0-20)
[2021-04-04 09:04] LABS: D-Dimer Quantitative (DVT/PE) 0.54 FEU/ug/m (0.27-0.49)
[2021-04-04] MEDS: Aspirin 300 MG Suppository RC (11:07)
[2021-04-04 11:16] LABS: Bedside Glucose 110 mg/dL (70-110)
--- NOTE | 2021-04-04 14:29 | PN.HOSP_ITS ---
Subjective Subjective Patient seen and examined. He remains aphasic. Unable to do review of systems due to confusion. Objective Data Objective Data Vital Signs: Vital Signs Temp Pulse Resp BP Pulse Ox 97.8 F 61 16 180/95 H 97 04/04/21 14:00 04/04/21 14:00 04/04/21 14:00 04/04/21 14:00 04/04/21 14:00 Oxygen Delivery Method Room Air Weight: 174 lb 13.225 oz Body Mass Index (BMI) 23.2 Intake & Output: Intake and Output for Last 24 Hours 04/02/21 04/03/21 04/04/21 23:59 23:59 23:59 Intake Total 50 / 50 1896.67 / 1896.67 960 / 960 Output Total 200 / 200 450 / 450 Balance -150 / -150 1446.67 / 1446.67 960 / 960 Lab / Micro Data Result Diagrams: 04/04/21 05:54 04/04/21 05:54 Labs: Laboratory Results - last 24 hr 04/03/21 17:34: POC Glucose 121 H 04/03/21 21:00: POC Glucose 112 H 04/04/21 05:54: WBC 9.9, RBC 4.11 L, Hgb 13.0, Hct 36.8 L, MCV 89.5, MCH 31.6, MCHC 35.3, RDW Std Deviation 39.5, RDW Coeff of Palak 12.1, Plt Count 220, MPV 9.0, Immature Gran % (Auto) 0.500, Neut % (Auto) 69.3, Lymph % (Auto) 18.8 L, [place] % (Auto) 8.5, Eos % (Auto) 2.6, Baso % (Auto) 0.3, Absolute Neuts (auto) 6.9, Absolute Lymphs (auto) 1.86, Nucleated RBC % 0 04/04/21 05:54: Sodium 140, Potassium 3.6, Chloride 108 H, Carbon Dioxide 26.0, Anion Gap 6, BUN 12, Creatinine 1.04, Estim Creat Clear Calc 64.60, Est GFR (MDRD) Af Amer 89, Est GFR (MDRD) Non-Af 73, BUN/Creatinine Ratio 11.5, Glucose 100, Calcium 8.8 04/04/21 05:54: ESR 32 H 04/04/21 05:54: C-React Prot Ext Range 18.00 H 04/04/21 06:35: POC Glucose 105 04/04/21 08:18: D-Dimer Quant (PE/DVT) 0.54 H* 04/04/21 11:08: POC Glucose 110 Micro: Microbiology 04/02/21 20:52 Urine, Clean Catch Urine Culture - Final Staphylococcus epidermidis Radiography Diagnostic Testing: Radiology Impression Echocardiogram 04/02/21 22:26 Interpretation Summary The estimated ejection fraction is 55-60 %. Contrast echo using Definity No significant changes fom prior echo Ordering Physician: Reba Kim Referring Physician: Asaf Oden Performed By: Ingrid Shay RDCS, RVT Carotid Duplex 04/03/21 05:55 Interpretation Summary Irregular calcific plague proximal right internal carotid with <50% stenosis <50% stenosis right external carotid Irregular plague at the proximal left internal carotid with <50% stenosis <50% stenosis left external carotid Patent, antegrade vertebrals bilaterally Technically difficult exam Ordering Physician: Reba Kim Referring Physician: ASAF ODEN Performed By: Bailey Botello RDCS, RVT Thyroid Ultrasound 04/03/21 22:26 IMPRESSION: Enlargement of the right lobe of the thyroid with a dominant complex solid and cystic nodule measuring 3.1 cm x 3 cm x 2.1 cm. Biopsy is recommended. Electronically Signed: Ric Dasilva MD at 14:28 EST , Physical Exam Const alert and no apparent distress Constitutional Narrative: severe expressive aphasia Exam Limitations: altered mental status HEENT head/scalp atraumatic and moist oral mucous membranes Head and Scalp: normocephalic Eyes PERRL, EOMs intact bilaterally and conjunctivae normal Neck no lymphadenopathy Resp Resp Narrative: diminished breath sounds bibasally, no wheezes, no crackles. on room air. Cardio regular rate, regular rhythm, S1 normal heart sound, S2 normal heart sound and no murmurs GI normal to inspection, nondistended, normoactive bowel sounds, soft to palpation, non-tender and non-distended Extremity normal to inspection and full ROM Peripheral Pulses: Yes pulses 2+ throughout Skin no rashes or lesions noted Neuro Neuro Narrative: severe expressive aphasia, right facial droop. Moving all extremities spontaneously. Sensorium / Orientation: awake Psych Mood & Affect: anxious Assessment & Plan Assessment/Plan (1) Acute CVA (cerebrovascular accident): PLAN: #Acute CVA * CT bran showed acute ischemic infarcts of the right and left cerebellar hemispheres, * CTA of the head and neck showed no hemodynamically significant stenosis. * MRI of brain positive for stroke * on aspirin and high intensity statin. * still has left facial droop * [facility]y reviewed him yesterday and recommended continuing his eliquis; to resume eliquis on 04/09/2021. * to continue on aspirin for now. D dimer ordered was WNL. * CRP elevated, and ESR pending. * speech therapy on board. Patient keeps failing speech therapy * PT/OT on board. Fall precautions. #Heterogeneous right thyroid lobe: * Thyroid showed enlargement of the right thyroid lobe with a dominant complex solid and cystic nodule measuring 3.1 x 3 x 2.1 cm. Biopsy is recommended. * to follow up with endocrinology on outpatient basis. TSH and Free T4 were WNL #Hypertension: * resume BP meds today as it has been 48 hours since admission. * On hydralazine and HCTZ as well as amlodipine. IV hydralazine prn #Hyperlipidemia: On high intensity statin #Chronic adrenal insufficiency: On fludrocortisone #GERD: On famotidine #CKD stage III: Creatinine around 1.5. Will monitor. #History of vascular dementia: PT OT on board. Fall precautions DVT prophylaxis: * SCDs. * continue SCDs for now. Resume eliquis on 04/09/2021 per neurology. * Disposition: await placement Charges/Coding Visit Charges Inpatient E&M: 15420 Subs Hosp L2
[2021-04-04] MEDS: hydrALAZINE 20 MG/ML Vial 5 MG IV (14:46)
[2021-04-04] MEDS: 0.9% Saline Lock 10 ML Syringe IV ×2 (14:46→17:36)
[2021-04-04 15:56] LABS: Bedside Glucose 110 mg/dL (70-110)
[2021-04-04] MEDS: hydrALAZINE 20 MG/ML Vial 10 MG IV (17:36)
[2021-04-04 21:41] LABS: Bedside Glucose 89 mg/dL (70-110)
[2021-04-05] VITALS (19 sets, daily range): BP systolic 106–202; BP diastolic 64–107; PULSE 69–88; RESP 16–18; TEMP 36.3–37.3; O2SAT 97–99; BMI 23.2
[2021-04-05] MEDS: 0.9% Normal Saline 1,000 ML 100 ML IV (01:13)
[2021-04-05] MEDS: hydrALAZINE 20 MG/ML Vial 10 MG IV ×5 (01:19→21:27)
[2021-04-05] MEDS: 0.9% Saline Lock 10 ML Syringe IV ×5 (01:20→21:27)
[2021-04-05 06:35] LABS: Bedside Glucose 101 mg/dL (70-110)
[2021-04-05 06:51] LABS: Absolute Lymphocyte Count 1.52 X10^3/uL (0.83-4.51); Absolute Neutrophil Count 8.3 X10^3/uL (2.0-7.7); Basophil# 0.05 X10^3/uL; Basophil% 0.5 % (0-1); Eosinophil# 0.22 X10^3/uL; Hematocrit 37.9 % (40-54); Hemoglobin 12.8 g/dL (13.0-16.5); Lymphocyte # 1.52 X10^3/ul (0.83-4.51); Mean Corp Hgb Conc 33.8 g/dL (32-36); Mean Corpuscular Volume 91.8 fL (80-94); Mean Platelet Vol. 9.5 fl (6.2-12.0); Monocyte% 6.4 % (0-10); NRBC Flagged by Analyzer 0 % (0-5); Neutrophil # 8.34 X10^3/uL (2.7-7.7); Neutrophil % 76.8 % (47-70); Platelet Count 231 K/mm3 (150-450); RBC Distribution Width CV 12.4 % (11.6-14.6); RBC Distribution Width SD 41.4 fl (35.1-43.9); Red Blood Count 4.13 M/mm3 (4.6-6.2); White Blood Count 10.9 K/mm3 (4.4-11.0)
[2021-04-05 07:10] LABS: Anion Gap 10 (5-15); BUN 13 mg/dL (7-18); BUN/Creat Ratio 12.5 RATIO (10-20); Calcium,Total 8.8 mg/dL (8.5-10.1); Chloride 107 mmol/L (98-107); Creatinine, Serum 1.04 mg/dL (0.70-1.30); EST Glomerular Filtration Rate 73 mL/min (>60); Est Glom Filt Rate - Afr Amer 89 mL/min (>60); Estimated Creatinine Clearance 64.19 ml/min; Glucose 85 mg/dL (74-106); Potassium 3.5 mmol/L (3.5-5.1); Sodium Level 139 mmol/L (136-145)
[2021-04-05] MEDS: Aspirin 300 MG Suppository RC (08:32)
[2021-04-05 11:15] LABS: Bedside Glucose 104 mg/dL (70-110)
--- NOTE | 2021-04-05 16:05 | PN.HOSP_ITS ---
Subjective Subjective Patient seen and examined. HE remains severely aphasic. Unable to do review of systems. Objective Data Objective Data Vital Signs: Vital Signs Temp Pulse Resp BP Pulse Ox 98.4 F 88 16 157/88 H 99 04/05/21 14:40 04/05/21 14:55 04/05/21 14:40 04/05/21 15:51 04/05/21 14:51 Oxygen Delivery Method Room Air Weight: 173 lb 11.588 oz Body Mass Index (BMI) 23.2 Intake & Output: Intake and Output for Last 24 Hours 04/03/21 04/04/21 04/05/21 23:59 23:59 23:59 Intake Total 1896.67 / 1896.67 1950 / 1950 1660 / 1660 Output Total 450 / 450 300 / 300 100 / 100 Balance 1446.67 / 1446.67 1650 / 1650 1560 / 1560 Lab / Micro Data Result Diagrams: 04/05/21 05:58 04/05/21 05:58 Labs: Laboratory Results - last 24 hr 04/04/21 21:23: POC Glucose 89 04/05/21 05:58: WBC 10.9, RBC 4.13 L, Hgb 12.8 L, Hct 37.9 L, MCV 91.8, MCH 31.0, MCHC 33.8, RDW Std Deviation 41.4, RDW Coeff of Palak 12.4, Plt Count 231, MPV 9.5, Immature Gran % (Auto) 0.300, Neut % (Auto) 76.8 H, Lymph % (Auto) 14.0 L, [place] % (Auto) 6.4, Eos % (Auto) 2.0, Baso % (Auto) 0.5, Absolute Neuts (auto) 8.3 H, Absolute Lymphs (auto) 1.52, Nucleated RBC % 0 04/05/21 05:58: Sodium 139, Potassium 3.5, Chloride 107, Carbon Dioxide 22.0, Anion Gap 10, BUN 13, Creatinine 1.04, Estim Creat Clear Calc 64.19, Est GFR (MDRD) Af Amer 89, Est GFR (MDRD) Non-Af 73, BUN/Creatinine Ratio 12.5, Glucose 85, Calcium 8.8 04/05/21 06:30: POC Glucose 101 04/05/21 11:05: POC Glucose 104 Micro: Microbiology 02/10/22 20:52 Urine, Clean Catch Urine Culture - Final Staphylococcus epidermidis Physical Exam Const alert and no apparent distress Constitutional Narrative: severe expressive aphasia Exam Limitations: altered mental status HEENT head/scalp atraumatic and moist oral mucous membranes Head and Scalp: normocephalic Eyes PERRL, EOMs intact bilaterally and conjunctivae normal Neck no lymphadenopathy Resp Resp Narrative: diminished breath sounds bibasally, no wheezes, no crackles. on room air. Cardio regular rate, regular rhythm, S1 normal heart sound, S2 normal heart sound and no murmurs GI normal to inspection, nondistended, normoactive bowel sounds, soft to palpation, non-tender and non-distended Extremity normal to inspection and full ROM Peripheral Pulses: Yes pulses 2+ throughout Skin no rashes or lesions noted Neuro Neuro Narrative: severe expressive aphasia, right facial droop. Moving all extremities spontaneously. Sensorium / Orientation: awake Psych affect normal Assessment & Plan Assessment/Plan (1) Acute CVA (cerebrovascular accident): PLAN: #Acute CVA * CT brain showed acute ischemic infarcts of the right and left cerebellar hemispheres * CTA of the head and neck showed no hemodynamically significant stenosis. * MRI of brain positive for stroke * on aspirin and high intensity statin. * still has left facial droop * [facility] neurology reviewed him yesterday and recommended continuing his eliquis; to resume eliquis on 04/09/2021. * to continue on aspirin for now. D dimer ordered was WNL. * CRP and ESR are mildly elevated. * speech therapy on board. Patient keeps failing speech therapy * PT/OT on board. Fall precautions. * per neurology, to benefit for loop recorder or 30 day event monitor #Heterogeneous right thyroid lobe: * Thyroid showed enlargement of the right thyroid lobe with a dominant complex solid and cystic nodule measuring 3.1 x 3 x 2.1 cm. Biopsy is recommended. * to follow up with endocrinology on outpatient basis. TSH and Free T4 were WNL #Hypertension: * BP meds resumed, but patient unable to take the meds due to aphasia. IV hydralazine prn. #Hyperlipidemia: On high intensity statin #Chronic adrenal insufficiency: On fludrocortisone #GERD: On famotidine #CKD stage III: Creatinine around 1.5. Will monitor. #History of vascular dementia: PT OT on board. Fall precautions DVT prophylaxis: * SCDs. * continue SCDs for now. Resume eliquis on 04/09/2021 per neurology. * Disposition: * await placement. Will speak to about PEG tube if patient remains aphasic and keeps failing speech evaluation. Charges/Coding Visit Charges Inpatient E&M: 98132 Subs Hosp L2
[2021-04-05 16:16] LABS: Bedside Glucose 94 mg/dL (70-110)
[2021-04-05 21:10] LABS: Bedside Glucose 87 mg/dL (70-110)
[2021-04-06] VITALS (11 sets, daily range): BP systolic 167–216; BP diastolic 87–106; PULSE 73–90; RESP 16–18; TEMP 36.6–36.8; O2SAT 96–99; BMI 23.2
[2021-04-06] MEDS: hydrALAZINE 20 MG/ML Vial 10 MG IV ×2 (03:25→22:33)
[2021-04-06] MEDS: 0.9% Saline Lock 10 ML Syringe IV (03:26)
[2021-04-06 06:37] LABS: Absolute Lymphocyte Count 1.58 X10^3/uL (0.83-4.51); Absolute Neutrophil Count 9.8 X10^3/uL (2.0-7.7); Basophil# 0.04 X10^3/uL; Basophil% 0.3 % (0-1); Eosinophils% 1.6 % (0-5); Hematocrit 38.7 % (40-54); Hemoglobin 13.4 g/dL (13.0-16.5); Lymphocyte # 1.58 X10^3/ul (0.83-4.51); Lymphocyte % 12.8 % (19-41); Mean Corp Hgb Conc 34.6 g/dL (32-36); Mean Corpuscular Hgb 31.3 pg (27.0-32.0); Mean Corpuscular Volume 90.4 fL (80-94); Mean Platelet Vol. 9.1 fl (6.2-12.0); Monocyte# 0.73 X10^3/uL; Monocyte% 5.9 % (0-10); NRBC Flagged by Analyzer 0 % (0-5); Neutrophil # 9.75 X10^3/uL (2.7-7.7); Neutrophil % 78.9 % (47-70); Platelet Count 257 K/mm3 (150-450); RBC Distribution Width CV 12.7 % (11.6-14.6); RBC Distribution Width SD 41.4 fl (35.1-43.9); Red Blood Count 4.28 M/mm3 (4.6-6.2); White Blood Count 12.4 K/mm3 (4.4-11.0)
[2021-04-06 06:41] LABS: Bedside Glucose 105 mg/dL (70-110)
[2021-04-06 07:04] LABS: Anion Gap 11 (5-15); BUN 18 mg/dL (7-18); BUN/Creat Ratio 13.6 RATIO (10-20); Calcium,Total 9.6 mg/dL (8.5-10.1); Chloride 108 mmol/L (98-107); Creatinine, Serum 1.32 mg/dL (0.70-1.30); EST Glomerular Filtration Rate 56 mL/min (>60); Est Glom Filt Rate - Afr Amer 67 mL/min (>60); Estimated Creatinine Clearance 51.28 ml/min; Glucose 90 mg/dL (74-106); Potassium 3.8 mmol/L (3.5-5.1); Sodium Level 142 mmol/L (136-145)
--- NOTE | 2021-04-06 10:31 | CASEMGMT ---
LINUS faxed updates to [facility]. LINUS will check with patient's today to see if she wants him to return to [facility] or go to a different SNF. Amanda BOTELLO
--- NOTE | 2021-04-06 11:04 | PCM.PN.HOSP ---
Subjective Subjective Comprehension appears to be intact, however he continues to have significant aphasia. No issues overnight, he still continues to fail bedside swallow is hopefully will proceed with modified barium swallow today for improved evaluation of the swallowing depending on what that shows it has already been discussed with the family about the possibility of a PEG tube Objective Data Objective Data Vital Signs: Vital Signs Temp Pulse Resp BP Pulse Ox 97.9 F 76 16 199/87 H 97 04/06/21 03:00 04/06/21 07:00 04/06/21 03:00 04/06/21 03:25 04/06/21 03:00 Oxygen Delivery Method Room Air Weight: 177 lb 0.499 oz Body Mass Index (BMI) 23.2 Intake & Output: Intake and Output for Last 24 Hours 04/05/21 04/06/21 04/07/21 03:59 03:59 03:59 Intake Total 2890 / 2890 720 / 720 Output Total 300 / 300 100 / 100 Balance 2590 / 2590 620 / 620 Lab / Micro Data Result Diagrams: 04/06/21 06:20 04/06/21 06:20 Labs: Laboratory Results - last 24 hr 04/05/21 11:05: POC Glucose 104 04/05/21 15:50: POC Glucose 94 04/05/21 20:48: POC Glucose 87 04/06/21 06:20: WBC 12.4 H, RBC 4.28 L, Hgb 13.4, Hct 38.7 L, MCV 90.4, MCH 31.3, MCHC 34.6, RDW Std Deviation 41.4, RDW Coeff of Palak 12.7, Plt Count 257, MPV 9.1, Immature Gran % (Auto) 0.500, Neut % (Auto) 78.9 H, Lymph % (Auto) 12.8 L, [place] % (Auto) 5.9, Eos % (Auto) 1.6, Baso % (Auto) 0.3, Absolute Neuts (auto) 9.8 H, Absolute Lymphs (auto) 1.58, Nucleated RBC % 0 04/06/21 06:20: Sodium 142, Potassium 3.8, Chloride 108 H, Carbon Dioxide 23.0, Anion Gap 11, BUN 18, Creatinine 1.32 H, Estim Creat Clear Calc 51.28, Est GFR (MDRD) Af Amer 67, Est GFR (MDRD) Non-Af 56 L, BUN/Creatinine Ratio 13.6, Glucose 90, Calcium 9.6 04/06/21 06:32: POC Glucose 105 Micro: Microbiology 04/02/21 20:52 Urine, Clean Catch Urine Culture - Final Staphylococcus epidermidis Physical Exam Const alert, oriented x3 and no apparent distress General Appearance: cooperative HEENT normocephalic and moist oral mucous membranes Eyes PERRL, EOMs intact bilaterally and conjunctivae normal Neck supple and no JVD Resp normal respiratory effort, no retractions and no use of accessory muscles Auscultation: diminished lung sounds; Negative for crackles, rales, rhonchi or wheezes Cardio regular rate, regular rhythm, S1 normal heart sound, S2 normal heart sound and no murmurs GI soft to palpation, non-tender and non-distended; Negative for hepatosplenomegaly Extremity no clubbing, cyanosis or edema Skin no rashes or lesions noted Neuro no focal motor deficits and no sensory deficits noted Neuro Narrative: Significant aphasia Psych affect normal Appearance: appropriate Assessment & Plan Assessment/Plan (1) Acute CVA (cerebrovascular accident): PLAN: #Acute CVA CT brain showed acute ischemic infarcts of the right and left cerebellar hemispheres CTA of the head and neck showed no hemodynamically significant stenosis. MRI of brain positive for stroke on aspirin and high intensity statin. [facility] neurology reviewed him yesterday and recommended continuing his eliquis; to resume eliquis on 04/09/2021. to continue on aspirin for now speech therapy on board. Patient keeps failing speech therapy, may need to proceed with modified barium swallow PT/OT per neurology, to benefit for loop recorder or 30 day event monitor #Heterogeneous right thyroid lobe: Thyroid showed enlargement of the right thyroid lobe with a dominant complex solid and cystic nodule measuring 3.1 x 3 x 2.1 cm. Biopsy is recommended. to follow up with endocrinology on outpatient basis. TSH and Free T4 were WNL #Hypertension: BP meds resumed, but patient unable to take the meds due to aphasia. IV hydralazine prn. #Hyperlipidemia: On high intensity statin #Chronic adrenal insufficiency: On fludrocortisone #GERD: On famotidine #CKD stage III: Creatinine appears to be at baseline, will continue to monitor #History of vascular dementia: PT OT on board. Fall precautions DVT: SCDs Charges/Coding Visit Charges Inpatient E&M: 42639 Subs Hosp L2
--- NOTE | 2021-04-06 11:59 | CASEMGMT ---
Social Work SW called on cell phone, the phone just rang with no clicking over to voicemail. SW called at home, message left. LINUS will continue to follow. JESSENIA Valiente
[2021-04-06 12:11] LABS: Bedside Glucose 109 mg/dL (70-110)
--- NOTE | 2021-04-06 13:06 | CASEMGMT ---
LINUS met with patient's . She said she does not want patient to go back to [facility]. She has the lists that SW gave her the other day. LINUS explained the sooner she lets SW know the better as it is a process. She was going to review the list and maybe go look at some places. Amanda Steiner [employer]
--- NOTE | 2021-04-06 16:10 | CASEMGMT ---
Social Work Pt's called this SW back, but she has since spoken w/LINUS Patel on PCU letting her know she does not want pt to return to [facility]. She plans to go see places tomorrow and will be back in touch w/Amanda in regard to where she would like a referral sent. JESSENIA Valiente
[2021-04-06 17:30] LABS: Bedside Glucose 107 mg/dL (70-110)
[2021-04-07] VITALS (19 sets, daily range): BP systolic 107–199; BP diastolic 66–108; PULSE 70–89; RESP 16–18; TEMP 36.6–36.8; O2SAT 96–99; BMI 23.2
[2021-04-07 02:01] LABS: Bedside Glucose 106 mg/dL (70-110)
[2021-04-07 06:19] LABS: Absolute Lymphocyte Count 1.75 X10^3/uL (0.83-4.51); Absolute Neutrophil Count 8.9 X10^3/uL (2.0-7.7); Basophil# 0.04 X10^3/uL; Basophil% 0.3 % (0-1); Eosinophil# 0.29 X10^3/uL; Eosinophils% 2.4 % (0-5); Hemoglobin 13.3 g/dL (13.0-16.5); Lymphocyte # 1.75 X10^3/ul (0.83-4.51); Lymphocyte % 14.7 % (19-41); Mean Corp Hgb Conc 34.1 g/dL (32-36); Mean Corpuscular Hgb 30.9 pg (27.0-32.0); Mean Corpuscular Volume 90.7 fL (80-94); Mean Platelet Vol. 9.4 fl (6.2-12.0); Monocyte# 0.88 X10^3/uL; Monocyte% 7.4 % (0-10); NRBC Flagged by Analyzer 0 % (0-5); Neutrophil # 8.88 X10^3/uL (2.7-7.7); Neutrophil % 74.8 % (47-70); Platelet Count 282 K/mm3 (150-450); RBC Distribution Width CV 12.7 % (11.6-14.6); RBC Distribution Width SD 41.6 fl (35.1-43.9); White Blood Count 11.9 K/mm3 (4.4-11.0)
[2021-04-07 06:36] LABS: Bedside Glucose 102 mg/dL (70-110)
[2021-04-07 08:30] LABS: Anion Gap 10 (5-15); BUN 22 mg/dL (7-18); BUN/Creat Ratio 17.2 RATIO (10-20); Calcium,Total 9.4 mg/dL (8.5-10.1); Chloride 110 mmol/L (98-107); Creatinine, Serum 1.28 mg/dL (0.70-1.30); EST Glomerular Filtration Rate 58 mL/min (>60); Est Glom Filt Rate - Afr Amer 70 mL/min (>60); Estimated Creatinine Clearance 51.96 ml/min; Glucose 103 mg/dL (74-106); Potassium 3.5 mmol/L (3.5-5.1); Sodium Level 142 mmol/L (136-145)
--- NOTE | 2021-04-07 09:14 | PCM.PN.HOSP ---
Subjective Subjective Doing well, no issues overnight. Objective Data Objective Data Vital Signs: Vital Signs Temp Pulse Resp BP Pulse Ox 97.8 F 88 16 199/108 H 97 04/07/21 08:26 04/07/21 08:26 04/07/21 08:26 04/07/21 08:26 04/07/21 08:26 Oxygen Delivery Method Room Air Weight: 173 lb 1.006 oz Body Mass Index (BMI) 23.2 Intake & Output: Intake and Output for Last 24 Hours 04/06/21 04/07/21 04/08/21 03:59 03:59 03:59 Intake Total 720 / 720 0 / 0 Output Total 100 / 100 150 / 150 Balance 620 / 620 -150 / -150 Lab / Micro Data Result Diagrams: 04/07/21 05:55 04/07/21 07:42 Labs: Laboratory Results - last 24 hr 04/06/21 11:57: POC Glucose 109 04/06/21 17:22: POC Glucose 107 04/06/21 23:32: POC Glucose 106 04/07/21 05:55: WBC 11.9 H, RBC 4.30 L, Hgb 13.3, Hct 39.0 L, MCV 90.7, MCH 30.9, MCHC 34.1, RDW Std Deviation 41.6, RDW Coeff of Palak 12.7, Plt Count 282, MPV 9.4, Immature Gran % (Auto) 0.400, Neut % (Auto) 74.8 H, Lymph % (Auto) 14.7 L, [place] % (Auto) 7.4, Eos % (Auto) 2.4, Baso % (Auto) 0.3, Absolute Neuts (auto) 8.9 H, Absolute Lymphs (auto) 1.75, Nucleated RBC % 0 04/07/21 05:55: Sodium Cancelled, Potassium Cancelled, Chloride Cancelled, Carbon Dioxide Cancelled, Anion Gap Cancelled, BUN Cancelled, Creatinine Cancelled, Estim Creat Clear Calc Cancelled, Est GFR (MDRD) Af Amer Cancelled, Est GFR (MDRD) Non-Af Cancelled, BUN/Creatinine Ratio Cancelled, Glucose Cancelled, Calcium Cancelled 04/07/21 06:07: POC Glucose 102 04/07/21 07:42: Sodium 142, Potassium 3.5, Chloride 110 H, Carbon Dioxide 22.0, Anion Gap 10, BUN 22 H, Creatinine 1.28, Estim Creat Clear Calc 51.96, Est GFR (MDRD) Af Amer 70, Est GFR (MDRD) Non-Af 58 L, BUN/Creatinine Ratio 17.2, Glucose 103, Calcium 9.4 Micro: Microbiology 04/02/21 20:52 Urine, Clean Catch Urine Culture - Final Staphylococcus epidermidis Physical Exam Narrative Const alert, oriented x3 and no apparent distress General Appearance: cooperative HEENT normocephalic and moist oral mucous membranes Eyes PERRL, EOMs intact bilaterally and conjunctivae normal Neck supple and no JVD Resp normal respiratory effort, no retractions and no use of accessory muscles Auscultation: diminished lung sounds; Negative for crackles, rales, rhonchi or wheezes Cardio regular rate, regular rhythm, S1 normal heart sound, S2 normal heart sound and no murmurs GI soft to palpation, non-tender and non-distended; Negative for hepatosplenomegaly Extremity no clubbing, cyanosis or edema Skin no rashes or lesions noted Neuro no focal motor deficits and no sensory deficits noted Neuro Narrative: Significant aphasia Psych affect normal Appearance: appropriate Assessment & Plan Assessment/Plan (1) Acute CVA (cerebrovascular accident): PLAN: #Acute CVA/HTN/HLD CT brain showed acute ischemic infarcts of the right and left cerebellar hemispheres CTA of the head and neck showed no hemodynamically significant stenosis. MRI of brain positive for stroke on aspirin and high intensity statin. [facility] neurology reviewed him yesterday and recommended continuing his eliquis; to resume eliquis on 04/09/2021. to continue on aspirin for now speech therapy on board. Proceed with modified barium swallow today for further evaluation of the swallowing mechanics PT/OT per neurology, to benefit for loop recorder or 30 day event monitor Will resume his home blood pressure medications when he is able to take p.o. #Heterogeneous right thyroid lobe: Thyroid showed enlargement of the right thyroid lobe with a dominant complex solid and cystic nodule measuring 3.1 x 3 x 2.1 cm. Biopsy is recommended. to follow up with endocrinology on outpatient basis. TSH and Free T4 were WNL #Chronic adrenal insufficiency: On fludrocortisone #GERD: On famotidine #CKD stage IIIa: Creatinine appears to be at baseline, will continue to monitor #History of vascular dementia: PT/OT on board. Fall precautions DVT: SCDs Charges/Coding Visit Charges Inpatient E&M: 70429 Subs Hosp L2
--- NOTE | 2021-04-07 09:58 | CASEMGMT ---
LINUS received a phone call from patient's , Tatyana. She asked LINUS to send a referral to [facility] for [facility]. LINUS let her know SW will do this right away. LINUS faxed referral to [facility]. Amanda BOTELLO
[2021-04-07] MEDS: hydrALAZINE 20 MG/ML Vial 10 MG IV (10:31)
[2021-04-07] MEDS: Aspirin 300 MG Suppository RC (10:31)
[2021-04-07 10:36] LABS: Bedside Glucose 109 mg/dL (70-110)
[2021-04-07 11:34] LABS: Magnesium 2.1 mg/dL (1.6-2.6); Phosphorus 2.9 mg/dL (2.5-4.9)
--- NOTE | 2021-04-07 14:13 | CASEMGMT ---
Addendum entered by Amanda Steiner 04/07/21 15:10: LINUS notified patient's that [facility] is full and will not have any availability until next week and patient will be ready before then. She said she has not looked at either [facility] or [facility]. She will do this tomorrow. LINUS asked if she could do this today as patient is nearing d/c and LINUS needs to obtain insurance authorization which can take a day or two. Patient's said [facility] would not let her tour after 4p and she is waiting on the results of patient's Modified Barium Swallow. She will go in the morning and get back to as soon as she can. Amanda BOTELLO Addendum entered by Amanda Steiner 04/07/21 14:50: LINUS received a phone call from Buffy at [facility] and they are full. They do not anticipate any open beds until next week. LINUS will notify patient's . Amanda BOTELLO Original Note: LINUS spoke with [facility] and either facility [facility] or [facility] can accept patient. LINUS notified patient's . She asked that LINUS also fax a referral to [facility]. LINUS faxed referral to [facility] and also called leaving a message regarding referral. Amnada BOTELLO
[2021-04-07] MEDS: Sertraline 50 MG Tablet PO (15:19)
[2021-04-07] MEDS: Famotidine 20 MG Tablet PO ×2 (15:19→22:12)
[2021-04-07] MEDS: Smz/Tmp Ds Tablet 1 TABLET PO (15:19)
[2021-04-07] MEDS: amLODIPine 2.5 MG Tablet PO (15:19)
[2021-04-07] MEDS: hydrALAZINE 10 MG Tablet PO (15:19)
[2021-04-07] MEDS: NIFEdipine 90 MG Tablet PO (15:21)
[2021-04-07] MEDS: Ferrous Gluconate 324 MG Tablet PO (15:22)
--- NOTE | 2021-04-07 15:37 | CASEMGMT ---
Patient's notified LINUS that she is going to [place] tomorrow morning at 9am. She cannot get a hold of anyone at [facility]. She asked if LINUS could call and let [facility] know she would like to tour [facility] at 930a. LIUNS called [facility] and notified her of this plan. She said she will plan on talking with patient's at that time. LINUS let patient's know this information. She said as soon as she makes a decision she will get back to LINUS. LINUS thanked her for working on this. Amanda Steiner [employer]OR CARRI[employer] INSPECTOR ROSMERY
--- NOTE | 2021-04-07 15:42 | ST.MBS ---
Modified Barium Swallow - Patient Information Study Date: 04/07/21 Study Time: 14:00 Direct Billable Minutes: 105 Total Minutes procedure & reportin Diagnosis: Acute CVA (I63.9) Referring Physician: Jasmeet Jones Reason for Referral: Objectively assess swallow function, assess risk for aspiration, and determine recommendations for least restrictive diet textures and compensatory strategies to improve safety of swallow. Medical History: The patient is a 80 y/o M w/ PMHx: CKD stage III unclear subtype, Vascular Dementia, HTN, Chronic anemia/Fe deficiency anemia, Adrenal insufficiency on fludrocortisone, GERD, Anxiety and Depression, Diabetes mellitus type II, Former tobacco use, Hx prior CVA on eliquis therapy who presented to the [facility] ED on 04/02/21 with history of onset altered mental status, slurred speech as well as right-sided facial droop with last known well at 7:30 PM on day of presentation found by nursing staff at his skilled facility on the floor noted to be unable to speak at that time or get up on his own and move with a baseline orientation x1-2 with no speech alteration or slurred speech per skilled facility history. In the ED NIH stroke scale noted to be 7. Patient is following commands and given the significant findings on his CT with prior strokes his deficits are less than expected. Per physician discussion with , previous strokes were 15 years prior to current presentation. Work-up in the ED included CT the brain with acute ischemic infarct of the right and left cerebellar hemispheres. 04/03/21 MRI/Brain without Contrast IMPRESSION: Involutional changes of the brain, as described above. Acute/subacute infarct of the left parietal lobe. Pt referred for speech consult as part of work-up for CVA. Pt failed RN dysphagia screen. Speech therapy recommended NPO at bedside swallow evaluation. He was referred for MBS study to assess appropriateness for diet advancement. Medical History (Updated 04/02/21 @ 21:[address] Reba Kim MD) Acute CVA (cerebrovascular accident) Anxiety and depression Benign essential HTN Cataract (lens) fragments in eye following cataract surgery, left eye Chronic kidney disease DM2 (diabetes mellitus, type 2) Former tobacco use GERD (gastroesophageal reflux disease) History of CVA (cerebrovascular accident) Hyperlipidemia Muscle weakness (generalized) Orthostatic hypotension Sleep apnea TIA (transient ischemic attack) Vascular dementia Current Diet Ordered: NPO Mental Status: Impaired - Aphasic. Pt is able to follow simple commands. History of vascular dementia. Respiratory Status: Oxygenating on Room Air - Clear lung sounds per RN. - Penetration-Aspiration Scale Penetration-Aspiration Scale: OBJECTIVE ASSESSMENT OF SWALLOW FUNCTION (QUANTITATIVE ? PER TRIAL): PENETRATION / ASPIRATION SCALE (BARNES): 1 = does not enter airway 2 = enters airway/above vocal folds/ejected 3 = enters airway/above vocal folds/not ejected 4 = enters airway/contacts vocal folds/ejected 5 = enters airway/contacts vocal folds/not ejected 6 = enters airway/below vocal folds/ejected 7 = enters airway/below vocal folds/not ejected despite effort 8 = enters airway/below vocal folds/no effort VIDEOFLOROSCOPIC SCALE SCORE (BARNES): Grade I = aspiration of material that has penetrated into the laryngeal vestibule, intact cough reflex Grade II = aspiration < 10 % of the bolus, intact cough reflex Grade III = aspiration of < 10 % of the bolus, reduced cough reflex or aspiration of > 10 % of the bolus, intact cough reflex Grade IV = aspiration of > 10 % of the bolus, reduced cough reflex - Penetration-Aspiration Scale Score Thin Liquid via teaspoon Double swallow Result: 3= enters airways/above vocal folds/not ejected Thin Liquid via teaspoon Result: 3= enters airways/above vocal folds/not ejected Thin Liquid via small single sip from cup Result: 8= enters airway/below vocal folds/no effort Comment: Cued cough and reswallow - somewhat effective in clearing contrast from laryngeal vestibule; however, aspirated contrast remained in the airway. Rembert Thick Liquid via teaspoon Double swallow Result: 1= does not enter airway Rembert Thick Liquid via teaspoon Result: 5= enters airways/contacts vocal folds/not ejected Rembert Thick Liquid via small single sip from cup Result: 2= enter airway/above vocal folds/ejected Rembert Thick Liquid via small single sip from cup Trial 2 Result: 1= does not enter airway Honey Thick Liquid via small single sip from cup Result: 5= enters airways/contacts vocal folds/not ejected - Penetration of residue in the pyriforms from previous trial. Pudding via teaspoon Result: 1= does not enter airway - Cued cough and reswallow to clear residue from the laryngeal vestibule of previous trials. Pudding via teaspoon Double swallow Result: 1= does not enter airway Honey Thick Liquid via teaspoon Double swallow Result: 1= does not enter airway Honey Thick Liquid via teaspoon Double swallow Trial 2 Result: 2= enter airway/above vocal folds/ejected Pudding via teaspoon Double swallow Trial 2 Result: 1= does not enter airway Honey Thick Liquid via teaspoon Double swallow Trial 3 Result: 1= does not enter airway - Oral Phase Labial Seal: Escape progressing to mid-chin - Significant anterior spillage of thin and thickened liquid boluses. Tongue Control During Bolus Hold: Posterior escape of greater than half of bolus Bolus Preparation/Mastication: Minimal chewing/mashing with majority of bolus unchewed - DNT due to poor oral control. Bolus Transport/Lingual Motion: Repetitive/disorganized tongue motion Oral Residue: Residue collection on oral structures - Pharyngeal Phase Initiation of Pharyngeal Swallow: Bolus head in pyriforms - For thin and nectar thickened trials. Soft Palate Elevation: No bolus between soft palate and pharyngeal wall Laryngeal Elevation: Partial superior movement thyroid cart/partial apprx aryt-epig petiole Anterior Hyoid Excursion: Partial anterior movement Epiglottic Movement: Partial inversion Laryngeal Vestibule Closure at Height of Swallow: Incomplete; narrow column of air/contrast in laryngeal vestibule Pharyngeal Stripping Wave: Present - diminished Pharyngoesophageal Segment Opening: Minimal distension and minimal duration; marked obstruction of flow Tongue Base Retraction: Narrow column of contrast between tongue base & post. pharyngeal wall Pharyngeal Residue: Collection of residue within or on pharyngeal structures - Treatment Strategies Effects of treatment strategies attemped:: Double swallow = Effective. Decreased bolus size = Effective. Liquid wash to clear pudding residue = Effective. Cough and reswallow = Somewhat effective. - Diagnosis/Impression Diagnosis: Moderate-severe oral phase dysphagia (R13.12) Impression: The patient presented with oral phase deficits including poor bolus control and impaired A-P transport. Deficits in bolus control resulted in anterior spillage of various liquid trials and premature posterior loss of thin and nectar thick liquids to the pyriforms prior to swallow onset. The patient presented with lingual pumping for A-P bolus transport. The pharyngeal phase is primarily marked by delayed swallow onset, decreased airway closure, and decreased pharyngeal contraction. The patient had increased delay in swallow onset with thin and nectar thick liquids with bolus head in the pyriforms upon initiation of the pharyngeal swallow. For trials of honey thick liquids and pudding, the patient had bolus head in the vallecula upon swallow onset. The patient has decreased airway closure during the swallow due to decreased anterior hyoid excursion and laryngeal elevation. The patient has moderate pharyngeal residues due to decreased pharyngeal contraction and UES opening/duration, requiring two swallows to clear residue. Pudding residue had improved clearance with use of liquid wash. The patient presented with SILENT aspiration of thin liquid trial via cup. She had penetration of thin and nectar thick trials without full ejection from the laryngeal vestibule. Without use of double swallow, the patient had moderate pharyngeal residues that she would penetrate during subsequent swallows. SEE PAS scores above for full details of aspiration and penetration present during the study. - Recommendations Diet: Puree Textures, Honey-thick Liquids Comment: Monitor lung sounds closely. Discontinue diet if concerns for poor diet tolerance. Compensatory Strategies: Small Bites, Small Sips, Liquid by Teaspoon Only, Slow Rate, Multiple Swallows - Double swallow on each bite/sip, Alternate bites/solids and sips/liquids - 1:1 ratio, Sitting upright, Remain sitting upright for 30 minutes after PO intake Supervision: Total Feed Recommend Repeat Modified Barium Swallow: Yes - Will recommend repeat MBS study in 2-4 weeks after implementation of oropharyngeal strengthening exercise program. Need for Skilled Speech Therapy Services: Yes Comment: Will recommend the patient for skilled dysphagia therapy at current level of care to address deficits in oropharyngeal swallow function. Would consider the patient for oropharyngeal strengthening to improve lingual strength/coordination, hyolaryngeal elevation/excursion, pharyngeal contraction, and duration of UES opening. The patient would benefit from thorough education regarding diet recommendations and recommended compensatory strategies. Would NOT recommend diet advancement at bedside due presence of SILENT aspiration of thin liquids. Pending good diet tolerance, would consider the patient for implementation of [place] Free Water Protocol (FFWP) to encourage hydration and promote increased opportunities for swallowing throughout the patient?s day. Education Completed: 1. Described result of evaluation., 4. Family/caregivers understand evaluation & agree w/ goals & tx plan., 7. Pt requires further education on strategies & risks. - Status Active ST Patient: Active - Contact Information [facility] Speech Therapy:: Amparo Arcos M.A. CCC-ASPHALT PAVING FOREMAN Speech-Language Pathologist [facility] [address] [place] [address] [email or web address] [phone] 04/07/21 15:56
[2021-04-07 16:00] LABS: Bedside Glucose 116 mg/dL (70-110)
[2021-04-07] MEDS: Atorvastatin Calcium 10 MG Tablet 5 MG PO (22:12)
[2021-04-07] MEDS: Mirtazapine 15 MG Tablet PO (22:12)
[2021-04-07] MEDS: Potassium Chloride Oral Tablet 10 MEQ PO (22:13)
[2021-04-08] VITALS (13 sets, daily range): BP systolic 97–171; BP diastolic 61–88; PULSE 74–91; RESP 14–18; TEMP 36.3–36.8; O2SAT 95–100; BMI 23.2
[2021-04-08 00:46] LABS: Bedside Glucose 135 mg/dL (70-110)
[2021-04-08 05:19] LABS: Absolute Lymphocyte Count 2.07 X10^3/uL (0.83-4.51); Absolute Neutrophil Count 8.1 X10^3/uL (2.0-7.7); Basophil# 0.04 X10^3/uL; Basophil% 0.3 % (0-1); Eosinophil# 0.29 X10^3/uL; Eosinophils% 2.5 % (0-5); Hemoglobin 12.3 g/dL (13.0-16.5); Lymphocyte # 2.07 X10^3/ul (0.83-4.51); Mean Corp Hgb Conc 33.2 g/dL (32-36); Mean Corpuscular Hgb 29.9 pg (27.0-32.0); Mean Corpuscular Volume 89.8 fL (80-94); Mean Platelet Vol. 9.5 fl (6.2-12.0); Monocyte% 7.8 % (0-10); NRBC Flagged by Analyzer 0 % (0-5); Neutrophil # 8.12 X10^3/uL (2.7-7.7); Platelet Count 291 K/mm3 (150-450); RBC Distribution Width CV 12.9 % (11.6-14.6); RBC Distribution Width SD 42.2 fl (35.1-43.9); Red Blood Count 4.12 M/mm3 (4.6-6.2); White Blood Count 11.5 K/mm3 (4.4-11.0)
[2021-04-08 05:55] LABS: Anion Gap 9 (5-15); BUN 30 mg/dL (7-18); BUN/Creat Ratio 15.3 RATIO (10-20); Calcium,Total 9.5 mg/dL (8.5-10.1); Chloride 111 mmol/L (98-107); Creatinine, Serum 1.96 mg/dL (0.70-1.30); EST Glomerular Filtration Rate 35 mL/min (>60); Est Glom Filt Rate - Afr Amer 43 mL/min (>60); Estimated Creatinine Clearance 33.93 ml/min; Glucose 102 mg/dL (74-106); Potassium 3.5 mmol/L (3.5-5.1); Sodium Level 143 mmol/L (136-145)
[2021-04-08] MEDS: hydrALAZINE 10 MG Tablet PO ×2 (06:33→21:03)
[2021-04-08 06:51] LABS: Bedside Glucose 115 mg/dL (70-110)
[2021-04-08] MEDS: Sertraline 50 MG Tablet PO (09:21)
[2021-04-08] MEDS: Famotidine 20 MG Tablet PO ×2 (09:21→21:02)
[2021-04-08] MEDS: amLODIPine 2.5 MG Tablet PO (09:21)
[2021-04-08] MEDS: Fludrocortisone Acetate 0.1 MG Tablet PO (09:21)
[2021-04-08] MEDS: Aspirin 81 MG TAB.CHEW PO (09:22)
[2021-04-08] MEDS: Aspirin 300 MG Suppository RC (09:22)
[2021-04-08] MEDS: 0.9% Normal Saline 1,000 ML 100 ML IV ×2 (09:23→20:00)
[2021-04-08] MEDS: NIFEdipine 90 MG Tablet PO (09:39)
--- NOTE | 2021-04-08 09:52 | PN.HOSP_ITS ---
Subjective Subjective Doing well, had his modified barium swallow yesterday and had his dietary modifications so he is able to take p.o. Objective Data Objective Data Vital Signs: Vital Signs Temp Pulse Resp BP Pulse Ox 98.3 F 82 14 171/88 H 100 04/08/21 08:21 04/08/21 08:21 04/08/21 08:21 04/08/21 08:21 04/08/21 08:21 Oxygen Delivery Method Room Air Weight: 176 lb 9.444 oz Body Mass Index (BMI) 23.2 Intake & Output: Intake and Output for Last 24 Hours 04/07/21 04/08/21 04/09/21 03:59 03:59 03:59 Intake Total 0 / 0 200 / 200 Output Total 150 / 150 300 / 300 Balance -150 / -150 -100 / -100 Lab / Micro Data Result Diagrams: 04/08/21 04:19 04/08/21 04:19 Labs: Laboratory Results - last 24 hr 04/07/21 07:42: Phosphorus 2.9, Magnesium 2.1 04/07/21 10:29: POC Glucose 109 04/07/21 15:54: POC Glucose 116 H 04/07/21 22:06: POC Glucose 135 H 04/08/21 04:19: WBC 11.5 H, RBC 4.12 L, Hgb 12.3 L, Hct 37.0 L, MCV 89.8, MCH 29.9, MCHC 33.2, RDW Std Deviation 42.2, RDW Coeff of Palak 12.9, Plt Count 291, MPV 9.5, Immature Gran % (Auto) 0.400, Neut % (Auto) 71.0 H, Lymph % (Auto) 18.0 L, [place] % (Auto) 7.8, Eos % (Auto) 2.5, Baso % (Auto) 0.3, Absolute Neuts (auto) 8.1 H, Absolute Lymphs (auto) 2.07, Nucleated RBC % 0 04/08/21 04:19: Sodium 143, Potassium 3.5, Chloride 111 H, Carbon Dioxide 23.0, Anion Gap 9, BUN 30 H, Creatinine 1.96 H, Estim Creat Clear Calc 33.93, Est GFR (MDRD) Af Amer 43 L, Est GFR (MDRD) Non-Af 35 L, BUN/Creatinine Ratio 15.3, Glucose 102, Calcium 9.5 04/08/21 06:27: POC Glucose 115 H Micro: Microbiology 04/02/21 20:52 Urine, Clean Catch Urine Culture - Final Staphylococcus epidermidis Physical Exam Narrative Const alert, oriented x3 and no apparent distress General Appearance: cooperative HEENT normocephalic and moist oral mucous membranes Eyes PERRL, EOMs intact bilaterally and conjunctivae normal Neck supple and no JVD Resp normal respiratory effort, no retractions and no use of accessory muscles Auscultation: diminished lung sounds; Negative for crackles, rales, rhonchi or wheezes Cardio regular rate, regular rhythm, S1 normal heart sound, S2 normal heart sound and no murmurs GI soft to palpation, non-tender and non-distended; Negative for hepatosplenomegaly Extremity no clubbing, cyanosis or edema Skin no rashes or lesions noted Neuro no focal motor deficits and no sensory deficits noted Neuro Narrative: Significant aphasia Psych affect normal Appearance: appropriate Assessment & Plan Assessment/Plan (1) Acute CVA (cerebrovascular accident): PLAN: #Acute CVA/HTN/HLD/CAD/JOHN on CKD 3a * CT brain showed acute ischemic infarcts of the right and left cerebellar hemispheres * CTA of the head and neck showed no hemodynamically significant stenosis. * MRI of brain positive for stroke * on aspirin and high intensity statin. * [facility] neurology reviewed him yesterday and recommended continuing his eliquis; to resume eliquis on 04/09/2021. * to continue on aspirin for now * speech therapy on board. Proceed with modified barium swallow today for [facility] evaluation of the swallowing mechanics * PT/OT, likely will need SNF placement * per neurology, to benefit for loop recorder or 30 day event monitor * Resume his home blood pressure medications * We will start some IV fluids secondary to his JOHN #Heterogeneous right thyroid lobe: * Thyroid showed enlargement of the right thyroid lobe with a dominant complex solid and cystic nodule measuring 3.1 x 3 x 2.1 cm. Biopsy is recommended. * to follow up with endocrinology on outpatient basis. TSH and Free T4 were WNL #Chronic adrenal insufficiency: On fludrocortisone #GERD: On famotidine #History of vascular dementia: PT/OT on board. Fall precautions DVT: SCDs Charges/Coding Visit Charges Inpatient E&M: 26810 Subs Hosp L2
[2021-04-08 11:31] LABS: Bedside Glucose 152 mg/dL (70-110)
[2021-04-08] MEDS: Ferrous Gluconate 324 MG Tablet PO (11:58)
[2021-04-08] MEDS: Insulin Lispro 100 UNIT/ML INSULN.PEN SC (11:59)
--- NOTE | 2021-04-08 12:27 | CASEMGMT ---
LINUS received a call from patient's and she would like patient to go to [facility]. LINUS let her know SW will notify [facility]. LINUS called [facility]oya and asked her to please start the pre-cert for [facility]. LINUS faxed updated PT/OT and Modified Barium Swallow results. Plan: d/c to [facility] pending insurance approval. Amanda Steiner BUSHER HELPER ROSMERY
[2021-04-08 16:30] LABS: Bedside Glucose 128 mg/dL (70-110)
[2021-04-08] MEDS: Atorvastatin Calcium 10 MG Tablet 5 MG PO (21:02)
[2021-04-08] MEDS: Potassium Chloride Oral Tablet 10 MEQ PO (21:03)
[2021-04-08] MEDS: Mirtazapine 15 MG Tablet PO (21:03)
[2021-04-08 21:11] LABS: Bedside Glucose 107 mg/dL (70-110)
[2021-04-09] VITALS (11 sets, daily range): BP systolic 106–175; BP diastolic 61–95; PULSE 67–94; RESP 16–18; TEMP 36.4–36.8; O2SAT 94–98; BMI 23.2
[2021-04-09] MEDS: 0.9% Saline Lock 10 ML Syringe IV (02:57)
[2021-04-09] MEDS: hydrALAZINE 20 MG/ML Vial 10 MG IV (02:58)
[2021-04-09] MEDS: 0.9% Normal Saline 1,000 ML 100 ML IV (05:18)
[2021-04-09 05:32] LABS: Absolute Lymphocyte Count 1.99 X10^3/uL (0.83-4.51); Absolute Neutrophil Count 7.9 X10^3/uL (2.0-7.7); Basophil# 0.04 X10^3/uL; Basophil% 0.4 % (0-1); Eosinophil# 0.43 X10^3/uL; Eosinophils% 3.8 % (0-5); Hemoglobin 12.4 g/dL (13.0-16.5); Lymphocyte # 1.99 X10^3/ul (0.83-4.51); Lymphocyte % 17.7 % (19-41); Mean Corp Hgb Conc 34.4 g/dL (32-36); Mean Corpuscular Hgb 30.7 pg (27.0-32.0); Mean Corpuscular Volume 89.1 fL (80-94); Mean Platelet Vol. 9.1 fl (6.2-12.0); Monocyte# 0.82 X10^3/uL; Monocyte% 7.3 % (0-10); NRBC Flagged by Analyzer 0 % (0-5); Neutrophil # 7.89 X10^3/uL (2.7-7.7); Neutrophil % 70.4 % (47-70); Platelet Count 279 K/mm3 (150-450); RBC Distribution Width CV 12.5 % (11.6-14.6); RBC Distribution Width SD 41.2 fl (35.1-43.9); Red Blood Count 4.04 M/mm3 (4.6-6.2); White Blood Count 11.2 K/mm3 (4.4-11.0)
[2021-04-09 06:02] LABS: Anion Gap 6 (5-15); BUN 22 mg/dL (7-18); BUN/Creat Ratio 16.8 RATIO (10-20); Calcium,Total 8.9 mg/dL (8.5-10.1); Chloride 111 mmol/L (98-107); Creatinine, Serum 1.31 mg/dL (0.70-1.30); EST Glomerular Filtration Rate 56 mL/min (>60); Est Glom Filt Rate - Afr Amer 68 mL/min (>60); Estimated Creatinine Clearance 51.67 ml/min; Glucose 118 mg/dL (74-106); Potassium 3.3 mmol/L (3.5-5.1); Sodium Level 143 mmol/L (136-145)
[2021-04-09] MEDS: hydrALAZINE 10 MG Tablet PO (06:16)
[2021-04-09 06:30] LABS: Bedside Glucose 118 mg/dL (70-110)
[2021-04-09 08:04] LABS: Magnesium 1.8 mg/dL (1.6-2.6); Phosphorus 2.6 mg/dL (2.5-4.9)
[2021-04-09] MEDS: amLODIPine 2.5 MG Tablet PO (08:13)
[2021-04-09] MEDS: Aspirin 81 MG TAB.CHEW PO (08:13)
[2021-04-09] MEDS: Famotidine 20 MG Tablet PO (08:13)
[2021-04-09] MEDS: Sertraline 50 MG Tablet PO (08:13)
[2021-04-09] MEDS: Fludrocortisone Acetate 0.1 MG Tablet PO (08:13)
[2021-04-09] MEDS: NIFEdipine 90 MG Tablet PO (08:13)
[2021-04-09] MEDS: Aspirin 300 MG Suppository RC (09:02)
--- NOTE | 2021-04-09 11:08 | PN.HOSP_ITS ---
Subjective Subjective Doing well, no issues overnight. Tolerating his modified diet. Objective Data Objective Data Vital Signs: Vital Signs Temp Pulse Resp BP Pulse Ox 97.7 F L 90 18 149/84 H 98 04/09/21 08:11 04/09/21 08:11 04/09/21 08:11 04/09/21 08:11 04/09/21 08:11 Oxygen Delivery Method Room Air Weight: 176 lb 9.444 oz Body Mass Index (BMI) 23.2 Intake & Output: Intake and Output for Last 24 Hours 04/08/21 04/09/21 04/10/21 03:59 03:59 03:59 Intake Total 200 / 200 1240 / 1240 930 / 930 Output Total 300 / 300 700 / 700 300 / 300 Balance -100 / -100 540 / 540 630 / 630 Lab / Micro Data Result Diagrams: 04/09/21 05:00 04/09/21 05:00 Labs: Laboratory Results - last 24 hr 04/08/21 11:22: POC Glucose 152 H 04/08/21 16:23: POC Glucose 128 H 04/08/21 21:00: POC Glucose 107 04/09/21 05:00: WBC 11.2 H, RBC 4.04 L, Hgb 12.4 L, Hct 36.0 L, MCV 89.1, MCH 30.7, MCHC 34.4, RDW Std Deviation 41.2, RDW Coeff of Palak 12.5, Plt Count 279, MPV 9.1, Immature Gran % (Auto) 0.400, Neut % (Auto) 70.4 H, Lymph % (Auto) 17.7 L, [place] % (Auto) 7.3, Eos % (Auto) 3.8, Baso % (Auto) 0.4, Absolute Neuts (auto) 7.9 H, Absolute Lymphs (auto) 1.99, Nucleated RBC % 0 04/09/21 05:00: Sodium 143, Potassium 3.3 L, Chloride 111 H, Carbon Dioxide 26.0, Anion Gap 6, BUN 22 H, Creatinine 1.31 H, Estim Creat Clear Calc 51.67, Est GFR (MDRD) Af Amer 68, Est GFR (MDRD) Non-Af 56 L, BUN/Creatinine Ratio 16.8, Glucose 118 H, Calcium 8.9 04/09/21 05:00: Phosphorus 2.6, Magnesium 1.8 04/09/21 06:15: POC Glucose 118 H Micro: Microbiology 04/02/21 20:52 Urine, Clean Catch Urine Culture - Final Staphylococcus epidermidis Physical Exam Narrative Const alert, oriented x3 and no apparent distress General Appearance: cooperative HEENT normocephalic and moist oral mucous membranes Eyes PERRL, EOMs intact bilaterally and conjunctivae normal Neck supple and no JVD Resp normal respiratory effort, no retractions and no use of accessory muscles Auscultation: diminished lung sounds; Negative for crackles, rales, rhonchi or wheezes Cardio regular rate, regular rhythm, S1 normal heart sound, S2 normal heart sound and no murmurs GI soft to palpation, non-tender and non-distended; Negative for hepatosplenomegaly Extremity no clubbing, cyanosis or edema Skin no rashes or lesions noted Neuro no focal motor deficits and no sensory deficits noted Neuro Narrative: Significant aphasia Psych affect normal Appearance: appropriate Assessment & Plan Assessment/Plan (1) Acute CVA (cerebrovascular accident): PLAN: #Acute CVA/HTN/HLD/CAD/JOHN on CKD 3a * CT brain showed acute ischemic infarcts of the right and left cerebellar hemispheres * CTA of the head and neck showed no hemodynamically significant stenosis. * MRI of brain positive for stroke * on aspirin and high intensity statin. * [facility] neurology recommended continuing his eliquis * to continue on aspirin for now * speech therapy on board. Modified diet recommendations by speech * PT/OT, likely will need SNF placement * per neurology, to benefit for loop recorder or 30 day event monitor * Resume his home blood pressure medications * We will start some IV fluids secondary to his JOHN #Heterogeneous right thyroid lobe: * Thyroid showed enlargement of the right thyroid lobe with a dominant complex solid and cystic nodule measuring 3.1 x 3 x 2.1 cm. Biopsy is recommended. * to follow up with endocrinology on outpatient basis. TSH and Free T4 were WNL #Chronic adrenal insufficiency: On fludrocortisone #GERD: On famotidine #History of vascular dementia: PT/OT on board. Fall precautions DVT: Eliquis Charges/Coding Visit Charges Inpatient E&M: 83979 Subs Hosp L2
[2021-04-09] MEDS: Acetaminophen 325 MG Tablet 650 MG PO (11:16)
[2021-04-09] MEDS: Ferrous Gluconate 324 MG Tablet PO (11:17)
[2021-04-09] MEDS: Insulin Lispro 100 UNIT/ML INSULN.PEN SC (11:17)
[2021-04-09 11:35] LABS: Bedside Glucose 174 mg/dL (70-110)
[2021-04-09] MEDS: APIXABAN 5 MG TABLET PO (12:15)
[2021-04-09] MEDS: Potassium Chloride 10mEq/100mL 10 MEQ/100 ML IV.SOLN. 100 MEQ IV BOLUS ×4 (12:15→15:47)
--- NOTE | 2021-04-09 14:02 | CASEMGMT ---
LINUS received a phone call from Celeste with [facility]. She asked when patient was admitted to [facility], where he was admitted from, and confirmed he wants to go to [place]. Celeste said she is working on patient's pre-cert and will hopefully have it soon. Amanda BOTELLO
--- NOTE | 2021-04-09 15:10 | PCM.TXEXTCAR ---
Diet 04/07/21 15:41 Diet: Regular - General Food consistency:: Pureed Liquid Consistency:: Honey/Moderately Thick Type of Dietary Supplement:: ES PUD Lunch,MC dinner Is pt able to select menu?: No Diet Comments: TOTAL FEED, ALL BITES/SIPS BY TSP, DOUBLE SWALLOW EACH BITE/SIP Routine Orders/Code Status Routine Lab Work: CBC and BMP Code Status: DNRCC-A Wound(s) left hand: Wound Type: Laceration arms: Wound Type: Skin Tear Therapies Physical Therapy: Eval and Treat Occupational Therapy: Eval and Treat Speech Therapy: Eval and Treat Problem/Diagnosis (1) Acute CVA (cerebrovascular accident): Status: Acute Allergies/Procedures Done in Hospital Allergies No Known Allergies Allergy (Verified 04/02/21 20:59) Procedures: 2-D Echocardiogram Type of Care/Length of Stay Estimated LOS: Convalescent Care Less Than 30 days Type of Care Needed: Skilled Rehab Potential: Fair Prognosis: Fair Additional Orders/Day of Discharge Day of Discharge: 04/09/21 Dietary and Speech Recommendations Dietitian Recommendations/Changes: continue regular diet- texture/consistency modifications per FIELD APPLICATION ENGINEER; will add ensure pudding w/ lunch and magic cup w/ dinner for additional protein/calories if consumed. Discharge Plan Admission Admit Date/Time: 04/02/21 21:39 Attending Provider: Jasmeet Jones Primary Care Provider: Kalpana Oden Discharge Orders/Prescriptions Prescriptions: New atorvastatin 10 mg Tablet 40 mg PO QHS Qty: 0 RF: 0 aspirin 81 mg Tablet,Chewable 81 mg PO BREAKFAST Qty: 0 RF: 0 Continued hydralazine 10 mg tablet 10 mg PO TID RF: 0 fludrocortisone 0.1 mg tablet 0.1 mg PO DAILY RF: 0 Eliquis 5 mg tablet 5 mg PO BID RF: 0 amlodipine 2.5 mg tablet 2.5 mg PO DAILY RF: 0 potassium chloride 10 mEq tablet extended release 10 meq PO QHS RF: 0 glimepiride 1 mg tablet 1 mg PO DAILY RF: 0 famotidine 20 mg tablet 20 mg PO BID RF: 0 mirtazapine 15 mg tablet 15 mg PO QHS RF: 0 sertraline 50 mg tablet 50 mg PO DAILY RF: 0 diazepam 5 mg tablet 5 mg PO TID PRN PRN (Reason: anxiety, agitation) RF: 0 ferrous gluconate 324 mg (38 mg iron) tablet 324 mg PO DAILY RF: 0 Nuedexta 20-10 mg capsule 20 cap PO BID RF: 0 Lactobacillus acidophilus Tablet 1 tab PO BID RF: 0 nifedipine 90 mg Tablet Extended Release 24hr 90 mg PO DAILY RF: 0 Discontinued simvastatin 20 mg tablet 10 mg PO QHS RF: 0 Other Ambulatory Orders: 30-Day Event Recorder (Routine) Location: None Selected Ordered By: Dr. Jasmeet Jones Referrals / Follow Up: Kalpana Oden MD [Primary Care Provider] - Disposition Disposition (needs filled in before D/C Order can be placed): [facility]
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
--- NOTE | 2021-04-09 15:15 | PCM.DC.SUM ---
Providers Date of Admission: 04/02/21 Primary Care Physician: Dr. Kalpana Oden MD Reason For Visit: ACUTE CVA Diagnosis Discharge Diagnosis (1) Acute CVA (cerebrovascular accident): Status: Acute Code(s): I63.9 - Cerebral infarction, unspecified Medications at Discharge Home Medications Eliquis 5 mg PO BID 04/02/21 Lactobacillus acidophilus 1 tab PO BID 04/02/21 Nuedexta 20 cap PO BID 04/02/21 amlodipine 2.5 mg PO DAILY 04/02/21 diazepam 5 mg PO TID PRN PRN 04/02/21 famotidine 20 mg PO BID 04/02/21 ferrous gluconate 324 mg PO DAILY 04/02/21 fludrocortisone 0.1 mg PO DAILY 04/02/21 glimepiride 1 mg PO DAILY 04/02/21 hydralazine 10 mg PO TID 04/02/21 mirtazapine 15 mg PO QHS 04/02/21 nifedipine 90 mg PO DAILY 04/02/21 potassium chloride 10 meq PO QHS 04/02/21 sertraline 50 mg PO DAILY 04/02/21 aspirin 81 mg PO BREAKFAST #0 tab 04/09/21 atorvastatin 40 mg PO QHS #0 tab 04/09/21 Hospital Course Operations None Procedures 2-D Echocardiogram Summary of Care Provided Minutes Spent on Discharge: 42 Hospital Course: Per HPI: The patient is a 80 y/o M w/ PMHx: CKD stage III unclear subtype, Vascular Dementia, HTN, Chronic anemia/Fe deficiency anemia, Adrenal insufficiency on fludrocortisone, GERD, Anxiety and Depression, Diabetes mellitus type II, Former tobacco use, Hx prior CVA on eliquis therapy who presents to the [facility] ED on 04/02/21 with history of onset altered mental status, slurred speech as well as right-sided facial droop with last known well at 7:30 PM on day of presentation found by nursing staff at his skilled facility on the floor noted to be unable to speak at that time or get up on his own and move with a baseline orientation x1-2 with no speech alteration or slurred speech per skilled facility history. In the ED NIH stroke scale noted to be 7. Patient is following commands and given the significant findings on his CT with prior strokes his deficits are less than expected. Patient's for stroke per discussion with was 15 years prior to current presentation. He had been on Coumadin in the past per discussion with her but had transition to Eliquis which was reviewed secondary to concerns for having strokes through Eliquis. Work-up in the ED included CT the brain with acute ischemic infarct of the right and left cerebellar hemispheres, CTA of the head and neck with a heterogeneous right lobe of the thyroid, mild atherosclerotic plaque formation of the origin of the right and left ICA with less than 50% cross-sectional diameter stenosis, calcified plaque formation right cavernous carotid artery with mild stenosis less than 50%, calcified plaque formation left cavernous carotid artery with mild stenosis less than 50%, CBC with WBC 13.4, hemoglobin 13.6, platelet 252 with left shift, coags with PT 16.4, INR 1.4, PTT 51.1, BMP chloride 109, BUN/creatinine 21/1.68, troponin 58, urinalysis with positive nitrate, 25 occult blood, 25 leukocyte esterase with no urine WBCs with 1+ urine bacteria, urine culture pending per ED is unable to ascertain if patient has been symptomatic, EKG with sinus rhythm with no acute evidence of ischemia. Hospital Course: 1. Acute CVA/HTN/HLD/CAD/JOHN on CKD 3a- 40-year-old male with a history of a previous CVA presents with altered mental status, slurred speech as well as a right-sided facial droop. He was not a TPA candidate secondary to the anticoagulation that he was on from his previous CVA. CT of the brain did show acute ischemic infarcts of the right and left cerebellar hemispheres and the MRI of his brain was also positive for stroke in his left parietal lobe, CTA of his head and neck was negative for any hemodynamically significant stenosis. He has significant aphasia he continued to have a right-sided facial droop. He does have, from report, vascular dementia but in conversations he does appear to understand the conversations and is able to interact with you in a meaningful manner. Neurology was consulted and recommended resuming his Eliquis as well as keeping him on aspirin. I would recommend a 30-day event monitor on discharge from the residential, this prescription has been printed. I also increased his simvastatin to Lipitor 40 mg p.o. every night otherwise his other medications remain the same. He did develop an JOHN and this is likely secondary to being n.p.o. His creatinine reached 1.96 and he was IV fluids and today on the day of discharge, his creatinine is down to 1.31, his baseline is around 1.1-1.2. He did have a modified barium swallow study and dietary recommendations were pur?ed textures with honey thick liquids they recommended small bites and small sips and liquids by teaspoon only, they recommended at this time that he be a total feed. I discussed with him the plan for discharge today to the residential and he expressed understanding the need to go to the residential. 2. Heterogeneous right thyroid lobe?thyroid ultrasound was obtained secondary to the read on the CTA of the head and neck. The ultrasound demonstrated a complex solid and cystic nodule that is approximately 3.1 x 3 x 2.1 cm biopsy is recommended which will need to be done as an outpatient. I also recommended he follow-up with endocrinology for this issue. A TSH and a free T4 were obtained which were within normal limits. 3. Chronic renal insufficiency, GERD, history of vascular dementia all chronic medical conditions which complicate his care. His home medications were continued where appropriate Medical Records Data Medical Nutrition Assessment Dietitian: Malnutrition Criteria Met Start: 04/09/21 14:32 Freq: Status: Active Protocol: Document 04/09/21 14:32 (Rec: 04/09/21 14:32 [id number]) Nutrition Malnutrition Evidence of Malnutrition Exists Yes Malnutrition (moderate): Acute Illness/Injury Evidenced By Suboptimal Energy Intake ( Severe),Weight Loss (Moderate) Intake Problem Inadequate Oral Intake Etiology related to swallowing difficulty Signs/Symptoms as evidenced by estimated PO intake meeting <50% of estimated energy needs, NPO x 5 days Status Active Problem Clinical Problem Acute Disease or Injury Related Malnutrition Etiology moderate, acute malnutrition r /t inadequate energy intake d/ t swallowing difficulty Signs/Symptoms as evidenced by unintentional wt loss of 0.9kg/1.1% x 1 week ; estimated PO intake meeting <50% of estimated energy needs , no PO intake x 5 days Status Active Problem Recommendation Dietitian Recommendations/Changes continue regular diet- texture /consistency modifications per FOREIGN CORRESPONDENT; will add ensure pudding w/ lunch and magic cup w/ dinner for additional protein/ calories if consumed. Weight / BMI Weight Weight: 176 lb 9.444 oz Body Mass Index (BMI) 23.2 ABG / Lab / Microbiology Data Result Diagrams: 04/09/21 05:00 04/09/21 05:00 Laboratory: Laboratory Results - last 24 hr 04/08/21 16:23: POC Glucose 128 H 04/08/21 21:00: POC Glucose 107 04/09/21 05:00: WBC 11.2 H, RBC 4.04 L, Hgb 12.4 L, Hct 36.0 L, MCV 89.1, MCH 30.7, MCHC 34.4, RDW Std Deviation 41.2, RDW Coeff of Palak 12.5, Plt Count 279, MPV 9.1, Immature Gran % (Auto) 0.400, Neut % (Auto) 70.4 H, Lymph % (Auto) 17.7 L, [place] % (Auto) 7.3, Eos % (Auto) 3.8, Baso % (Auto) 0.4, Absolute Neuts (auto) 7.9 H, Absolute Lymphs (auto) 1.99, Nucleated RBC % 0 04/09/21 05:00: Sodium 143, Potassium 3.3 L, Chloride 111 H, Carbon Dioxide 26.0, Anion Gap 6, BUN 22 H, Creatinine 1.31 H, Estim Creat Clear Calc 51.67, Est GFR (MDRD) Af Amer 68, Est GFR (MDRD) Non-Af 56 L, BUN/Creatinine Ratio 16.8, Glucose 118 H, Calcium 8.9 04/09/21 05:00: Phosphorus 2.6, Magnesium 1.8 04/09/21 06:15: POC Glucose 118 H 04/09/21 11:13: POC Glucose 174 H Microbiology: Microbiology 04/02/21 20:52 Urine, Clean Catch Urine Culture - Final Staphylococcus epidermidis Meaningful Use Info Meaningful Use Diagnoses (Choose all that apply): None applicable Discharge Plan Admission Admit Date/Time: 04/02/21 21:39 Attending Provider: Jasmeet Jones Primary Care Provider: Kalpana Oden Discharge Orders/Prescriptions Prescriptions: New atorvastatin 10 mg Tablet 40 mg PO QHS Qty: 0 RF: 0 aspirin 81 mg Tablet,Chewable 81 mg PO BREAKFAST Qty: 0 RF: 0 Continued hydralazine 10 mg tablet 10 mg PO TID RF: 0 fludrocortisone 0.1 mg tablet 0.1 mg PO DAILY RF: 0 Eliquis 5 mg tablet 5 mg PO BID RF: 0 amlodipine 2.5 mg tablet 2.5 mg PO DAILY RF: 0 potassium chloride 10 mEq tablet extended release 10 meq PO QHS RF: 0 glimepiride 1 mg tablet 1 mg PO DAILY RF: 0 famotidine 20 mg tablet 20 mg PO BID RF: 0 mirtazapine 15 mg tablet 15 mg PO QHS RF: 0 sertraline 50 mg tablet 50 mg PO DAILY RF: 0 diazepam 5 mg tablet 5 mg PO TID PRN PRN (Reason: anxiety, agitation) RF: 0 ferrous gluconate 324 mg (38 mg iron) tablet 324 mg PO DAILY RF: 0 Nuedexta 20-10 mg capsule 20 cap PO BID RF: 0 Lactobacillus acidophilus Tablet 1 tab PO BID RF: 0 nifedipine 90 mg Tablet Extended Release 24hr 90 mg PO DAILY RF: 0 Discontinued simvastatin 20 mg tablet 10 mg PO QHS RF: 0 Other Ambulatory Orders: 30-Day Event Recorder (Routine) Location: None Selected Ordered By: Dr. Jasmeet Jones Referrals / Follow Up: Kalpana Oden MD [Primary Care Provider] - Disposition Disposition (needs filled in before D/C Order can be placed): [facility] Charges/Coding Visit Charges Inpatient E&M: 28556 Disch Hosp
[2021-04-09 16:30] LABS: Bedside Glucose 99 mg/dL (70-110)
== END 2021-04-09 17:41 | disposition skilled nursing facility (03) | DRG 65 ==
LOC: ED 21:47 → PCU 21:52
PROVIDERS: Student in an Organized Health Care Education/Training Program; Admitting Provider Family Medicine; Emergency Provider Student in an Organized Health Care Education/Training Program; PCP Internal Medicine; Visit Provider Family Medicine
DX: I63.89 Other cerebral infarction (principal); N17.9 Acute kidney failure, unspecified; E27.40 Unspecified adrenocortical insufficiency; E11.22 Type 2 diabetes mellitus with diabetic chronic kidney disease; D50.9 Iron deficiency anemia, unspecified; E04.9 Nontoxic goiter, unspecified; F01.50 Vascular dementia, unspecified severity, without behavioral disturbance, psychotic disturbance, mood disturbance, and anxiety; N18.31 Chronic kidney disease, stage 3a; E78.5 Hyperlipidemia, unspecified; G47.33 Obstructive sleep apnea (adult) (pediatric); I12.9 Hypertensive chronic kidney disease with stage 1 through stage 4 chronic kidney disease, or unspecified chronic kidney disease; I95.1 Orthostatic hypotension; K21.9 Gastro-esophageal reflux disease without esophagitis; I69.320 Aphasia following cerebral infarction; I25.10 Atherosclerotic heart disease of native coronary artery without angina pectoris; F41.9 Anxiety disorder, unspecified; F32.A Depression, unspecified; R13.10 Dysphagia, unspecified; R47.81 Slurred speech; R29.810 Facial weakness; Z66 Do not resuscitate; Z79.899 Other long term (current) drug therapy; Z87.891 Personal history of nicotine dependence; Z79.01 Long term (current) use of anticoagulants; R29.707 NIHSS score 7
CPT/HCPCS: 36415; 70450; 70496; 70498; 70551; 71045; 74230; 76536; 80048; 80053; 80061; 81001; 82962; 83036; 83735; 84100; 84439; 84443; 84484; 85025; 85379; 85610; 85652; 85730; 86140; 87077; 87086; 87088; 87186; 92507; 92526; 92610; 92611; 93005; 93306; 93880; 94762; 97110; 97163; 97167; 97530; 97535; 97802; 97803; 99285; J7030; J7050; Q9957; Q9967; A4216; C8929